=== PATIENT | male | born 1995 | race Caucasian/White ===

== ENCOUNTER 2018-08-29 21:07 | Emergency (ER) | payer MEDICAID, SELFPAY ==
[2018-08-29] VITALS (14 sets, daily range): BP systolic 140–164; BP diastolic 68–104; PULSE 78–86; RESP 23; TEMP 36.6; O2SAT 90–100
--- NOTE | 2018-08-29 21:02 | DI.CT_ITS ---
SYMPTOMS/DIAGNOSIS: ETOH, FALL, POSTERIOR HEADACHE, LLQ PAIN CT BRAIN: Noncontrast. No priors. There is a normal godoy/white matter differentiation. No intracranial hemorrhage, midline shift or mass effect is identified. The ventricles are intact. The basilar cisterns are patent. There is nondisplaced fracture involving the right frontal bone. It involves the anterior and posterior wall of the right frontal sinus and extends to involve the right orbital roof and the medial wall of the right orbit. Fluid levels are seen in the right frontal sinus and severe ethmoid air cells anteriorly. There is also small fluid level in the right maxillary sinus. There is a small amount of air seen superior to the right orbit. The orbits and retro-orbital soft tissues are otherwise unremarkable. The orbital floor appears intact. IMPRESSION: 1. Fracture involving the right frontal bone with extension into both the anterior and posterior oliver of the right frontal sinus and extension into the roof of the right orbit and medial wall of the right orbit. 2. Small fluid level seen in the right frontal and maxillary sinuses with opacification of a few right ethmoid air cells. 3. No intracranial hemorrhage or abnormality. CT SCAN OF THE CERVICAL SPINE: Multiple contiguous axial images of the cervical spine were obtained. Sagittal and coronal reformatted images were evaluated on the Siemens workstation. There is straightening of the normal cervical lordosis. This may be due to patient positioning or muscle spasm. No acute fractures or subluxations are seen. There are mild degenerative changes seen in the cervical spine. The soft tissues are unremarkable. IMPRESSION: No acute fracture or subluxation in the cervical spine. CT SCAN OF THE ABDOMEN AND PELVIS: The liver is normal in size. No hepatic mass or laceration is seen. The portal, superior mesenteric and splenic veins are patent. The gallbladder is negative. There is no biliary ductal dilatation. The pancreas, spleen and adrenal glands are unremarkable as are the kidneys, ureters and bladder. The reproductive organs are unremarkable. The bowel shows no evidence of obstruction or inflammation. There is a normal appendix present. The abdominal aorta is of normal caliber. No significant abdominal or pelvic adenopathy, ascites or pneumoperitoneum is present. No acute osseous abnormality is identified. IMPRESSION: Negative abdominal and pelvic CT. CT SCAN OF THE CHEST: The thoracic aorta is intact. No evidence of dissection or aneurysm. The heart size is within normal limits. No significant pericardial effusion is present. No evidence of thoracic adenopathy, pleural effusion or pneumothorax is identified. There is soft tissue haziness in the anterior mediastinum. This is nonspecific. This may represent residual thymic tissue. Mediastinal trauma can not be excluded. No displaced rib fractures are appreciated. The sternum is intact. The thoracic spine appears grossly unremarkable. IMPRESSION: Haziness in the anterior mediastinum. This may represent residual thymic tissue but trauma to the anterior mediastinum can not be excluded. Please correlate clinically.
--- NOTE | 2018-08-29 21:04 | W.ED.GENAD ---
Discharge Plan Disposition Patient Disposition: [facility] Condition: Stable Discharge Details Chief Complaint: HeadInjury Clinical Impression: Traumatic fracture of facial bones Primary Care Provider: Zackery Sargent ED Provider: Micheal Pantoja Home Meds and New Rx's Prescriptions: No Action No Known Home Meds RF: 0 Medical Decision Making 23-year-old male drinking well number of beers today, got an argument with his mother, and then does not remember but was witnessed to fall over and strike his head on concrete. Unclear sustained loss of consciousness. He then sat up, EMS was called, he was placed in cervical collar and brought to the ER. His vital signs are normal, he does have evidence of head trauma with a abrasion to the forehead, posterior cervical tenderness. Additionally he has some minimal left lower quadrant tenderness. Due to the alcohol he is not a reliable historian. IV access established, labs obtained, patient referred for imaging. CT of the head reveals a nondisplaced fracture of the right frontal lobe with extension through the posterior and anterior wall of the right frontal sinus and extension into the roof and medial wall of the right orbit. Fluid levels within the right frontal and maxillary sinuses. C-spine negative. Negative anterior mediastinal haziness but otherwise unremarkable CT of chest abdomen and pelvis. Case discussed with Dr. Kang of [facility]'s trauma service, he accepts in transfer given the significance of the injury and need for observation. Lab Data Lab results reviewed: Yes I reviewed the patient's lab results. Laboratory Results - last 24 hr 08/29/18 08/29/18 08/29/18 21:55 21:55 21:55 WBC 10.19 RBC 5.77 Hgb 16.9 Hct 48.0 MCV 83.2 MCH 29.3 MCHC 35.2 RDW 13.8 Plt Count 138 MPV 12.3 H Immature Gran % 0.3 Neutrophils % 73.0 Lymphocytes % 18.4 Monocytes % 7.3 Eosinophils % 0.7 Basophils % 0.3 Absolute Neutrophils 7.45 H Absolute Lymphocytes 1.87 Absolute Monocytes 0.74 H Absolute Eosinophils 0.07 Absolute Basophils 0.03 PT 9.7 INR 1.0 Sodium 138 Potassium 3.8 Chloride 101 Carbon Dioxide 25.5 Anion Gap 11.5 H BUN 18 Creatinine 1.29 Estimated GFR/1.73 m2 >= 60.00 Glucose 94 Calcium 9.1 Total Bilirubin 1.3 H AST 28 ALT 42 Alkaline Phosphatase 62 Total Protein 8.1 Albumin 4.5 Ethyl Alcohol 08/29/18 21:55 WBC RBC Hgb Hct MCV MCH MCHC RDW Plt Count MPV Immature Gran % Neutrophils % Lymphocytes % Monocytes % Eosinophils % Basophils % Absolute Neutrophils Absolute Lymphocytes Absolute Monocytes Absolute Eosinophils Absolute Basophils PT INR Sodium Potassium Chloride Carbon Dioxide Anion Gap BUN Creatinine Estimated GFR/1.73 m2 Glucose Calcium Total Bilirubin AST ALT Alkaline Phosphatase Total Protein Albumin Ethyl Alcohol 91.3 ECG Data Attestation: I personally reviewed and interpreted this ECG (s) as follows: Interpretation: Normal sinus rhythm with a rate of 89, QRS is narrow, J-point elevation is present but there is no significant or diagnostic ST segment elevation. HPI General Mode of arrival: EMS. Date/Time Provider Initiated Documentation: 08/29/18 21:32. Limitations to Documentation: no limitations. Information obtained by: patient, family and EMS. History of Present Illness 23 year old M presents to the emergency department with the chief complaint of Drinking alcohol today, fell, described as moderate, Quality is described as dull and constant, and is localized to the head. Patient neck. Patient started experiencing this minute(s) and it has been constant. No relieving factors improve symptom(s), No exacerbating factors reported . Patient notes other (Left lower quadrant pain). Patient did receive the following treatments prior to arrival, other (IV placed in ambulance) Related Data Home Medications Medication Instructions Recorded Confirmed Unknown [No Known Home Meds] 11/26/12 08/29/18 Allergies Allergy/AdvReac Type Severity Reaction Status Date / Time No Known Allergies Allergy Unverified 08/29/18 20:57 General Stated Complaint: HeadInjury MAURICE: 3 Review of Systems Review of Systems Was drinking and then argued with mother, fell over, struck head. Posterior headache. Left lower quadrant pain. 8 systems reviewed and otherwise - [facility], [facility] Social History Smoking/Tobacco Use Status: Former Tobacco Use Alcohol Intake: current Alcohol Intake frequency: 0-2 drinks per day Alcohol type: beer Drug use: Daily Substance use type: marijuana Do you feel safe at home: Yes Do you feel safe in your relationship?: Yes Exam Narrative Exam Narrative: GEN: awake, alert, oriented 3. Pleasant, well groomed, interactive. HEAD: Normocephalic, abrasion to forehead ENT: Mucous membranes moist, oropharynx unremarkable, External ear exam unremarkable EYES: PERRL, EOMI NECK: Cervical collar in place, minimal posterior midline tenderness without step-off 4-4, no SAHRA, no menigismus CHEST/RESP: Minimally tender without crepitus, clear to auscultation bilateral, no wheeze/rhonchi/rales CARDIOVASCULAR: RRR, no murmur, rub nora. 2+ Rad pulse bilateral ABDOMEN: Soft, left lower quadrant tender, no mass. +Bowel sounds EXT: Full ROM, no edema, no rash. Minimal abrasions bilateral upper extremity Neuro: Grossly normal neurologic exam, conversant, interactive. Psych: Speech fluent, thoughts congruent, affect normal Course Vital Signs Temperature 36.6 C 08/29/18 20:50 Pulse 86 08/29/18 20:50 Respiratory Rate 23 08/29/18 20:50 Blood Pressure 140/68 08/29/18 20:50 Temperature 36.6 C 08/29/18 20:50 Temperature Source Skin 08/29/18 20:50 Pulse 86 08/29/18 20:50 Respiratory Rate 23 08/29/18 20:50 Respiratory Effort Non-Labored 08/29/18 20:54 Blood Pressure 140/68 08/29/18 20:50 Blood Pressure Position Supine 08/29/18 20:50 Oxygen Delivery Method Room Air 08/29/18 20:50 Oxygen Flow Rate 0 08/29/18 20:50 Pain Level 8 08/29/18 20:50
--- NOTE | 2018-08-29 21:08 | ED.GENADUL_ITS ---
Discharge Plan Disposition Patient Disposition: [facility] Condition: Stable Discharge Details Chief Complaint: HeadInjury Clinical Impression: Traumatic fracture of facial bones Primary Care Provider: Zackery Sargent ED Provider: Micheal Pantoja Home Meds and New Rx's Prescriptions: No Action No Known Home Meds RF: 0 Medical Decision Making 23-year-old male drinking well number of beers today, got an argument with his mother, and then does not remember but was witnessed to fall over and strike his head on concrete. Unclear sustained loss of consciousness. He then sat up, EMS was called, he was placed in cervical collar and brought to the ER. His vital signs are normal, he does have evidence of head trauma with a abrasion to the forehead, posterior cervical tenderness. Additionally he has some minimal left lower quadrant tenderness. Due to the alcohol he is not a reliable historian. IV access established, labs obtained, patient referred for imaging. CT of the head reveals a nondisplaced fracture of the right frontal lobe with extension through the posterior and anterior wall of the right frontal sinus and extension into the roof and medial wall of the right orbit. Fluid levels within the right frontal and maxillary sinuses. C-spine negative. Negative anterior mediastinal haziness but otherwise unremarkable CT of chest abdomen and pelvis. Case discussed with Dr. Kang of [facility]'s trauma service, he accepts in transfer given the significance of the injury and need for observation. Lab Data Lab results reviewed: Yes I reviewed the patient's lab results. Laboratory Results - last 24 hr 08/29/18 08/29/18 08/29/18 21:55 21:55 21:55 WBC 10.19 RBC 5.77 Hgb 16.9 Hct 48.0 MCV 83.2 MCH 29.3 MCHC 35.2 RDW 13.8 Plt Count 138 MPV 12.3 H Immature Gran % 0.3 Neutrophils % 73.0 Lymphocytes % 18.4 Monocytes % 7.3 Eosinophils % 0.7 Basophils % 0.3 Absolute Neutrophils 7.45 H Absolute Lymphocytes 1.87 Absolute Monocytes 0.74 H Absolute Eosinophils 0.07 Absolute Basophils 0.03 PT 9.7 INR 1.0 Sodium 138 Potassium 3.8 Chloride 101 Carbon Dioxide 25.5 Anion Gap 11.5 H BUN 18 Creatinine 1.29 Estimated GFR/1.73 m2 >= 60.00 Glucose 94 Calcium 9.1 Total Bilirubin 1.3 H AST 28 ALT 42 Alkaline Phosphatase 62 Total Protein 8.1 Albumin 4.5 Ethyl Alcohol 08/29/18 21:55 WBC RBC Hgb Hct MCV MCH MCHC RDW Plt Count MPV Immature Gran % Neutrophils % Lymphocytes % Monocytes % Eosinophils % Basophils % Absolute Neutrophils Absolute Lymphocytes Absolute Monocytes Absolute Eosinophils Absolute Basophils PT INR Sodium Potassium Chloride Carbon Dioxide Anion Gap BUN Creatinine Estimated GFR/1.73 m2 Glucose Calcium Total Bilirubin AST ALT Alkaline Phosphatase Total Protein Albumin Ethyl Alcohol 91.3 ECG Data Attestation: I personally reviewed and interpreted this ECG (s) as follows: Interpretation: Normal sinus rhythm with a rate of 89, QRS is narrow, J-point elevation is present but there is no significant or diagnostic ST segment elevation. HPI General Mode of arrival: EMS . Date/Time Provider Initiated Documentation: 08/29/18 21:32 . Limitations to Documentation: no limitations . Information obtained by: patient, family and EMS . History of Present Illness 23 year old M presents to the emergency department with the chief complaint of Drinking alcohol today, fell, described as moderate, Quality is described as dull and constant, and is localized to the head. Patient neck. Patient started experiencing this minute(s) and it has been constant. No relieving factors improve symptom(s), No exacerbating factors reported . Patient notes other (Left lower quadrant pain). Patient did receive the following treatments prior to arrival, other (IV placed in ambulance) Related Data Home Medications Medication Instructions Recorded Confirmed Unknown [No Known Home Meds] 11/26/12 08/29/18 Allergies Allergy/AdvReac Type Severity Reaction Status Date / Time No Known Allergies Allergy Unverified 08/29/18 20:57 General Stated Complaint: HeadInjury MAURICE: 3 Review of Systems Review of Systems Was drinking and then argued with mother, fell over, struck head. Posterior headache. Left lower quadrant pain. 8 systems reviewed and otherwise - [facility] Social History Smoking/Tobacco Use Status: Former Tobacco Use Alcohol Intake: current Alcohol Intake frequency: 0-2 drinks per day Alcohol type: beer Drug use: Daily Substance use type: marijuana Do you feel safe at home: Yes Do you feel safe in your relationship?: Yes Exam Narrative Exam Narrative: GEN: awake, alert, oriented 3. Pleasant, well groomed, interactive. HEAD: Normocephalic, abrasion to forehead ENT: Mucous membranes moist, oropharynx unremarkable, External ear exam unremarkable EYES: PERRL, EOMI NECK: Cervical collar in place, minimal posterior midline tenderness without step-off 4-4, no SAHRA, no menigismus CHEST/RESP: Minimally tender without crepitus, clear to auscultation bilateral, no wheeze/rhonchi/rales CARDIOVASCULAR: RRR, no murmur, rub nora. 2+ Rad pulse bilateral ABDOMEN: Soft, left lower quadrant tender, no mass. +Bowel sounds EXT: Full ROM, no edema, no rash. Minimal abrasions bilateral upper extremity Neuro: Grossly normal neurologic exam, conversant, interactive. Psych: Speech fluent, thoughts congruent, affect normal Course Vital Signs Temperature 36.6 C 08/29/18 20:50 Pulse 86 08/29/18 20:50 Respiratory Rate 23 08/29/18 20:50 Blood Pressure 140/68 08/29/18 20:50 Temperature 36.6 C 08/29/18 20:50 Temperature Source Skin 08/29/18 20:50 Pulse 86 08/29/18 20:50 Respiratory Rate 23 08/29/18 20:50 Respiratory Effort Non-Labored 08/29/18 20:54 Blood Pressure 140/68 08/29/18 20:50 Blood Pressure Position Supine 08/29/18 20:50 Oxygen Delivery Method Room Air 08/29/18 20:50 Oxygen Flow Rate 0 08/29/18 20:50 Pain Level 8 08/29/18 20:50
[2018-08-29] MEDS: Omnipaque 350 MG/ML 100 ML BTL IJ (21:15)
[2018-08-29] MEDS: Ondansetron 4 MG/2 ML VIAL IVP (21:45)
[2018-08-29] MEDS: HYDROmorphone 2 MG/ML VIAL 0.5 MG IVP ×2 (21:56→22:33)
--- NOTE | 2018-08-29 21:59 | DI.VRAD_ITS ---
EXAM: CT Head Without Contrast EXAM DATE/TIME: 08/29/2018 9:04 PM CLINICAL HISTORY: 23 years old, male; Injury or trauma; Initial encounter; Blunt trauma (contusions or hematomas); Consciousness not specified; Injury details: Etoh/fall. Posterior ASHFORD TECHNIQUE: Imaging protocol: Axial computed tomography images of the head without contrast. Coronal and sagittal reformatted images were created and reviewed. Radiation optimization: All CT scans at this facility use at least one of these dose optimization techniques: automated exposure control; mA and/or kV adjustment per patient size (includes targeted exams where dose is matched to clinical indication); or iterative reconstruction. COMPARISON: No relevant prior studies available. FINDINGS: Brain: Unremarkable. No hemorrhage. No significant white matter disease. No edema. Ventricles: Unremarkable. No ventriculomegaly. Bones/joints: There is a nondisplaced fracture of the anterior aspect of the right frontal bone with extension through the posterior and anterior wall of the right frontal sinus and extension into the roof and medial wall of the right orbit. The right orbital floor is intact. Sinuses: There is a fluid level within the right frontal and right maxillary sinus. Mucosal thickening within bilateral ethmoid, and left sphenoid sinus. Mastoid air cells: Visualized mastoid air cells are well aerated. No mastoid effusion. Soft tissues: There is a tiny amount of air within the superior soft tissues of the right orbit. Both ocular globes and retro-orbital fat are unremarkable. IMPRESSION: 1. Nondisplaced fracture of the anterior aspect of the right frontal bone with extension through the posterior and anterior wall of the right frontal sinus and extension into the roof and medial wall of the right orbit. 2. Fluid levels within the right frontal and maxillary sinuses. 3. No intracranial abnormality. EXAM: CT Cervical Spine Without Contrast EXAM DATE/TIME: 08/29/2018 9:04 PM CLINICAL HISTORY: 23 years old, male; Injury or trauma; Initial encounter; Blunt trauma (contusions or hematomas); Consciousness not specified; Injury details: Etoh/fall. Posterior ASHFORD TECHNIQUE: Imaging protocol: Axial computed tomography images of the cervical spine without contrast. Coronal and sagittal reformatted images were created and reviewed. Radiation optimization: All CT scans at this facility use at least one of these dose optimization techniques: automated exposure control; mA and/or kV adjustment per patient size (includes targeted exams where dose is matched to clinical indication); or iterative reconstruction. COMPARISON: No relevant prior studies available. FINDINGS: Vertebrae: Straightening of the normal cervical lordosis, likely due to splinting and/or patient positioning. Minimal degenerative spondylosis within the upper and mid cervical spine. No fracture or subluxation. Discs/Spinal canal/Neural foramina: No bony spinal stenosis. Soft tissues: Unremarkable. Lungs: Lung apices are clear. IMPRESSION: No fracture. Dictated and Authenticated by: Adam Carrasquillo MD. Ordering:SAMANTHA Burton MD
--- NOTE | 2018-08-29 22:03 | DI.VRAD_ITS ---
Addendum created by Prakash Ybarra MD on 08/29/2018 10:06:27 PM EDT STAT TRAUMA PROTOCOL CALL: THIS REPORT CONTAINS FINDINGS THAT MAY BE CRITICAL TO PATIENT CARE. The findings were verbally communicated via telephone conference with SACHI PADRON at 10:06 PM EDT on 08/29/2018. The findings were acknowledged and understood. Initial report created on 08/29/2018 10:03:16 PM EDT EXAM: CT Chest With Contrast EXAM DATE/TIME: 08/29/2018 9:04 PM CLINICAL HISTORY: 23 years old, male; Injury or trauma; Initial encounter; Blunt trauma (contusions or hematomas); Injury details: Etoh/fall. Posterior ASHFORD. Llq pain TECHNIQUE: Imaging protocol: Axial computed tomography images of the chest with intravenous contrast. Coronal and sagittal reformatted images were created and reviewed. Radiation optimization: All CT scans at this facility use at least one of these dose optimization techniques: automated exposure control; mA and/or kV adjustment per patient size (includes targeted exams where dose is matched to clinical indication); or iterative reconstruction. Contrast material: OMNI 350; Contrast volume: 100 ml; Contrast route: IV; COMPARISON: No relevant prior studies available. FINDINGS: Lungs: Linear fibrosis/atelectasis at the lung base bilaterally. Pleural space: Normal. No pneumothorax. No pleural effusion. Heart: Normal. No cardiomegaly. No pericardial effusion. Mediastinum: There is haziness of the fat in the anterior mediastinum. Aorta: Normal. No aortic aneurysm. Lymph nodes: Unremarkable. No enlarged lymph nodes. Bones/joints: Unremarkable. No acute fracture. Soft tissues: Unremarkable. IMPRESSION: There is mild haziness of the fat in the anterior mediastinum unclear if this is secondary to recent trauma. Otherwise unremarkable CT of the chest. EXAM: CT Abdomen and Pelvis With Contrast EXAM DATE/TIME: 08/29/2018 9:04 PM CLINICAL HISTORY: 23 years old, male; Injury or trauma; Initial encounter; Blunt trauma (contusions or hematomas); Injury details: Etoh/fall. Posterior ASHFORD. Llq pain TECHNIQUE: Imaging protocol: Axial computed tomography images of the abdomen and pelvis with intravenous contrast. Coronal and sagittal reformatted images were created and reviewed. Radiation optimization: All CT scans at this facility use at least one of these dose optimization techniques: automated exposure control; mA and/or kV adjustment per patient size (includes targeted exams where dose is matched to clinical indication); or iterative reconstruction. Contrast material: OMNI 350; Contrast volume: 125 ml; Contrast route: IV; COMPARISON: No relevant prior studies available. FINDINGS: ABDOMEN: Liver: Normal. No mass. Gallbladder and bile ducts: Normal. No calcified stones. No ductal dilation. Pancreas: Normal. No ductal dilation. Spleen: Normal. No splenomegaly. Adrenals: Normal. No mass. Kidneys and ureters: Normal. No hydronephrosis. Stomach and bowel: Normal. No obstruction. No mucosal thickening. Appendix: No evidence of appendicitis. PELVIS: Bladder: Unremarkable as visualized. Reproductive: Unremarkable as visualized. ABDOMEN and PELVIS: Intraperitoneal space: Normal. No free air. No significant fluid collection. Bones/joints: No acute fracture. No dislocation. Soft tissues: Unremarkable. Vasculature: Normal. No abdominal aortic aneurysm. Lymph nodes: Normal. No enlarged lymph nodes. IMPRESSION: No current CT evidence of intra-abdominal trauma. Dictated and Authenticated by: Prakash Ybarra MD. Ordering:SAMANTHA Burton MD
[2018-08-29 22:11] LABS: Abs Immature Grans 0.03 k/cumm (0.0-0.09); Absolute Basophil Count 0.03 k/cumm (0.0-0.2); Absolute Eosinophil Count 0.07 k/cumm (0.0-0.7); Absolute Lymphocyte Count 1.87 k/cumm (1.2-3.4); Absolute Monocyte Count 0.74 k/cumm (0.11-0.7); Absolute Neutrophil Count 7.45 k/cumm (1.2-6.7); Basophils % 0.3; Eosinophils % 0.7; HGB 16.9 g/dL (13.5-17.5); Immature Grans % 0.3; Lymphocytes % 18.4; Mean Corp. HGB Concentration 35.2 g/dL (32.0-36.0); Mean Corpuscular Hemoglobin 29.3 pg (27.0-33.0); Mean Corpuscular Volume 83.2 fL (80-95); Mean Platelet Volume 12.3 fL (8.0-11.0); Monocytes % 7.3; Platelet Count 138 x1000/uL (130-400); RBC 5.77 m/cumm (4.50-6.00); RBC Distribution Width 13.8 % (11.8-14.1); White Blood Cell Count 10.19 k/cumm (4.4-10.8)
[2018-08-29 22:19] LABS: ETHANOL BLOOD 91.3 mg/dL (<3)
[2018-08-29 22:27] LABS: ALT 42 U/L (12-78); AST 28 U/L (15-37); Albumin 4.5 g/dL (3.4-5.0); Alkaline Phosphatase 62 U/L (46-116); Anion Gap 11.5 mmol/L (3-11); BUN 18 mg/dL (7-18); Bilirubin, Total 1.3 mg/dL (0.2-1.0); CO2 25.5 mmol/L (21.0-32.0); CREATININE 1.29 mg/dL (0.70-1.30); Calcium 9.1 mg/dL (8.5-10.1); Chloride 101 mmol/L (98-107); Glucose 94 mg/dL (70-100); Potassium 3.8 mmol/L (3.5-5.1); Sodium 138 mmol/L (136-145); Total Protein 8.1 g/dL (6.4-8.2)
[2018-08-29] MEDS: Normal Saline 1,000 ML 1000 ML IV (22:33)
[2018-08-29 22:39] LABS: Prothrombin Time 9.7 sec (9.3-11.0)
[2018-08-30 00:01] VITALS: BP 153/69; PULSE 78; O2SAT 93
[2018-08-30 00:02] VITALS: O2SAT 93
[2018-08-30 00:27] VITALS: BP 153/69; PULSE 78; RESP 23; O2SAT 93
== END 2018-08-30 00:29 | disposition short-term general hospital (02) ==
PROVIDERS: Emergency Provider Emergency Medicine; PCP Pediatrics
DX: S02.101A Fracture of base of skull, right side, initial encounter for closed fracture (principal); S00.81XA Abrasion of other part of head, initial encounter; M54.2 Cervicalgia; W18.30XA Fall on same level, unspecified, initial encounter; F10.120 Alcohol abuse with intoxication, uncomplicated; Y90.4 Blood alcohol level of 80-99 mg/100 ml; R10.32 Left lower quadrant pain; R51 Headache
CPT/HCPCS: 36415; 74177; 80053; 93005; 96361; 96374; 96375; 96376; 99285; 70450; 71260; 72125; 80320; 85025; 85610; 93010; J2405; J3490

== ENCOUNTER 2018-09-02 11:44 | Emergency (ER) | payer MEDICAID, SELFPAY ==
[2018-09-02 11:55] VITALS: BP 140/76; PULSE 86; RESP 17; TEMP 37; O2SAT 98
--- NOTE | 2018-09-02 12:09 | W.ED.GENAD ---
Discharge Plan Disposition Patient Disposition: HOME Condition: Improving Discharge Details Chief Complaint: Recheck Clinical Impression: Head injury Primary Care Provider: Ana Paula,Local ED Provider: Micheal Pantoja Home Meds and New Rx's Prescriptions: No Action No Known Home Meds RF: 0 Discharge Instructions Instructions: Head Injury (ED) Additional Instructions: Light duty with both exercise and general activity over the next 7 to 10 days time, then may slowly advance activity as tolerated. May continue Tylenol as needed for headache, consider beginning to wean off of the ibuprofen. Return if you develop a fever, vomiting, persistent headache or any other concerns. You may wish to avoid prolonged use of screen time, or activity such as bookkeeping for the next 7 to 10 days time Medical Decision Making 23-year-old male known to me from a visit to the ER at this August 29 when he had fallen with frontal trauma and resultant frontal bone and orbital fracture. He was evaluated by the [facility] trauma service, had a follow-up with ophthalmology, now presents for recheck. He states he does not feel he had adequate discharge instructions and does not know limits of activity. He states he has been weaning from oral analgesics and has not had any's persistent or lasting headaches. No visual complaints. Patient's exam is reassuring and without significant finding. Discussed with him anticipated course of resolution of both concussive head injury as well as nondisplaced frontal bone fracture. He is stable for discharge to home. He understands return precautions HPI General Mode of arrival: ambulatory. Date/Time Provider Initiated Documentation: 09/02/18 11:47. Limitations to Documentation: no limitations. Information obtained by: patient. History of Present Illness 23 year old M presents to the emergency department with the chief complaint of Recheck after head injury, described as mild, Quality is described as dull and constant, and is localized to the head. Patient reports no radiation. Patient started experiencing this day(s) and it has been intermittent. No relieving factors improve symptom(s), No exacerbating factors reported . Patient notes no other symptoms.. Patient did receive the following treatments prior to arrival, none Related Data Home Medications Medication Instructions Recorded Confirmed Unknown [No Known Home Meds] 11/26/12 09/02/18 Allergies Allergy/AdvReac Type Severity Reaction Status Date / Time No Known Allergies Allergy Unverified 09/02/18 12:04 General Stated Complaint: Recheck MAURICE: 3 Review of Systems Review of Systems No fever or chills, no change to vision. Saw ophthalmology and had unremarkable eye exam. 8 systems reviewed and otherwise neg [facility] Social History Smoking/Tobacco Use Status: Former Tobacco Use Alcohol Intake: current Alcohol Intake frequency: 0-2 drinks per day Alcohol type: beer Drug use: Daily Substance use type: marijuana Do you feel safe at home: Yes Do you feel safe in your relationship?: Yes Exam Narrative Exam Narrative: GEN: awake, alert, oriented 3. Pleasant, well groomed, interactive. HEAD: Normocephalic, healing abrasion at the superior portion of forehead. ENT: Mucous membranes moist, oropharynx unremarkable, External ear exam unremarkable. Tympanic membranes clear bilaterally. No midface instability or anesthesia EYES: PERRL, EOMI NECK: Full ROM, no SAHRA, no menigismus CHEST/RESP: Nontender, no respiratory distress EXT: Full ROM, no edema, no rash Neuro: Grossly normal neurologic exam, conversant, interactive. Cranial nerves II through XII intact. Psych: Speech fluent, thoughts congruent, affect normal Course Vital Signs Temperature 37.0 C 09/02/18 11:55 Pulse 86 09/02/18 11:55 Respiratory Rate 17 09/02/18 11:55 Blood Pressure 140/76 09/02/18 11:55 Pulse Oximetry 98 09/02/18 11:55 Temperature 37.0 C 09/02/18 11:55 Pulse 86 09/02/18 11:55 Respiratory Rate 17 09/02/18 11:55 Respiratory Effort Non-Labored 09/02/18 12:02 Blood Pressure 140/76 09/02/18 11:55 Blood Pressure Position Sitting 09/02/18 11:55 Pulse Oximetry 98 09/02/18 11:55 Oxygen Delivery Method Room Air 09/02/18 11:55 Oxygen Flow Rate 0 09/02/18 11:55 Pain Level 0 09/02/18 11:55
--- NOTE | 2018-09-02 12:13 | ED.GENADUL_ITS ---
Discharge Plan Disposition Patient Disposition: HOME Condition: Improving Discharge Details Chief Complaint: Recheck Clinical Impression: Head injury Primary Care Provider: Ana Paula,Local ED Provider: Micheal Pantoja Home Meds and New Rx's Prescriptions: No Action No Known Home Meds RF: 0 Discharge Instructions Instructions: Head Injury (ED) Additional Instructions: Light duty with both exercise and general activity over the next 7 to 10 days time, then may slowly advance activity as tolerated. May continue Tylenol as needed for headache, consider beginning to wean off of the ibuprofen. Return if you develop a fever, vomiting, persistent headache or any other concerns. You may wish to avoid prolonged use of screen time, or activity such as bookkeeping for the next 7 to 10 days time Medical Decision Making 23-year-old male known to me from a visit to the ER at this August 29 when he had fallen with frontal trauma and resultant frontal bone and orbital fracture. He was evaluated by the [facility] trauma service, had a follow-up with ophthalmology, now presents for recheck. He states he does not feel he had adequate discharge instructions and does not know limits of activity. He states he has been weaning from oral analgesics and has not had any's persistent or lasting headaches. No visual complaints. Patient's exam is reassuring and without significant finding. Discussed with him anticipated course of resolution of both concussive head injury as well as nondisplaced frontal bone fracture. He is stable for discharge to home. He understands return precautions HPI General Mode of arrival: ambulatory . Date/Time Provider Initiated Documentation: 09/02/18 11:47 . Limitations to Documentation: no limitations . Information obtained by: patient . History of Present Illness 23 year old M presents to the emergency department with the chief complaint of Recheck after head injury, described as mild, Quality is described as dull and constant, and is localized to the head. Patient reports no radiation. Patient started experiencing this day(s) and it has been intermittent. No relieving factors improve symptom(s), No exacerbating factors reported . Patient notes no other symptoms.. Patient did receive the following treatments prior to arrival, none Related Data Home Medications Medication Instructions Recorded Confirmed Unknown [No Known Home Meds] 11/26/12 09/02/18 Allergies Allergy/AdvReac Type Severity Reaction Status Date / Time No Known Allergies Allergy Unverified 09/02/18 12:04 General Stated Complaint: Recheck MAURICE: 3 Review of Systems Review of Systems No fever or chills, no change to vision. Saw ophthalmology and had unremarkable eye exam. 8 systems reviewed and otherwise neg [facility] Social History Smoking/Tobacco Use Status: Former Tobacco Use Alcohol Intake: current Alcohol Intake frequency: 0-2 drinks per day Alcohol type: beer Drug use: Daily Substance use type: marijuana Do you feel safe at home: Yes Do you feel safe in your relationship?: Yes Exam Narrative Exam Narrative: GEN: awake, alert, oriented 3. Pleasant, well groomed, interactive. HEAD: Normocephalic, healing abrasion at the superior portion of forehead. ENT: Mucous membranes moist, oropharynx unremarkable, External ear exam unremarkable. Tympanic membranes clear bilaterally. No midface instability or anesthesia EYES: PERRL, EOMI NECK: Full ROM, no SAHRA, no menigismus CHEST/RESP: Nontender, no respiratory distress EXT: Full ROM, no edema, no rash Neuro: Grossly normal neurologic exam, conversant, interactive. Cranial nerves II through XII intact. Psych: Speech fluent, thoughts congruent, affect normal Course Vital Signs Temperature 37.0 C 09/02/18 11:55 Pulse 86 09/02/18 11:55 Respiratory Rate 17 09/02/18 11:55 Blood Pressure 140/76 09/02/18 11:55 Pulse Oximetry 98 09/02/18 11:55 Temperature 37.0 C 09/02/18 11:55 Pulse 86 09/02/18 11:55 Respiratory Rate 17 09/02/18 11:55 Respiratory Effort Non-Labored 09/02/18 12:02 Blood Pressure 140/76 09/02/18 11:55 Blood Pressure Position Sitting 09/02/18 11:55 Pulse Oximetry 98 09/02/18 11:55 Oxygen Delivery Method Room Air 09/02/18 11:55 Oxygen Flow Rate 0 09/02/18 11:55 Pain Level 0 09/02/18 11:55
[2018-09-02 12:54] VITALS: BP 140/76; PULSE 86; RESP 17; TEMP 37; O2SAT 98
--- NOTE | 2018-09-02 13:40 | PDOC.ERCMPRO ---
Care Management Progress Note 09/02-Dr. Pantoja requested assistance with a PCP (patient does not have one, [employer] environmental) f/u within a week for fall w/frontal trauma on 08/29. Patient had f/u at [facility] and presented to the ED today for recheck. Referral faxed to [facility] today.
--- NOTE | 2018-09-02 13:41 | CMPROGNOTE_ITS ---
Care Management Progress Note 09/02-Dr. 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 [place] [facility] [place] presented to the ED today for recheck. Referral faxed to [facility] today.
== END 2018-09-02 12:54 | disposition home or self-care (01) ==
PROVIDERS: Emergency Provider Emergency Medicine
DX: S02.10 Unspecified fracture of base of skull (principal); S00.81XD Abrasion of other part of head, subsequent encounter; W18.30XD Fall on same level, unspecified, subsequent encounter
CPT/HCPCS: 99281

== ENCOUNTER 2019-06-06 20:43 | Emergency (ER) | payer OTHER, SELFPAY ==
[2019-06-06 20:48] VITALS: BP 140/60; PULSE 45; RESP 16; TEMP 36.6; O2SAT 97
--- NOTE | 2019-06-06 21:13 | W.ED.GENAD ---
Discharge Plan Disposition Patient Disposition: HOME Condition: Stable Discharge Details Chief Complaint: Urinary Clinical Impression: Folliculitis, Urinary urgency Primary Care Provider: Jess Alonzo ED Provider: Eusebio Mandujano Home Meds and New Rx's Prescriptions: New bacitracin zinc 500 unit/gram ointment 1 applic TP Q8H 7 Days Qty: 15 RF: 0 Discharge Instructions Instructions: Sexually Transmitted Diseases (ED), Folliculitis (ED) Additional Instructions: Today you received prophylactic treatment for gonorrhea and chlamydia. You were given ceftriaxone 250 mg and azithromycin 2 g. Testing for gonorrhea, chlamydia, and syphilis pending at time of discharge. Please avoid sexual activity until you and any partner is tested and confirmed negative or fully treated. Please follow-up with your primary care physician. Return to the ER for any worsening or new concerning symptoms. Referrals: Jess Alonzo, [employer] [Primary Care Provider] - Medical Decision Making 23-year-old male here with increasing urinary frequency and urgency over the past 2 months. No dysuria or penile discharge. No testicular or epididymal tenderness. Patient also with group of small pustules at hair follicles left groin. Suspect mild folliculitis. No significant vesicle or ulcer amenable to herpes testing. Urinalysis was reviewed: Nondiagnostic. Plan to send gonorrhea and chlamydia and RPR. I had a conversation with the patient about options including initiating antibiotics prophylactically today or holding off and waiting for lab results. Patient would prefer for antibiotic treatment at this time - will treat with ceftriaxone 250mg IM and azithromycin 2g PO. Plan will be for outpatient follow-up with PCP. He is scheduled for appointment later this month which I encouraged him to keep. HPI General Mode of arrival: ambulatory. Date/Time Provider Initiated Documentation: 06/06/19 20:52. Limitations to Documentation: no limitations. Information obtained by: patient. HPI Narrative: 23-year-old male presents with chief complaint of increased urinary frequency and urgency over the past ~2 months. Symptoms worse recently. Denies associated dysuria. He has had some mild lower midline abdominal discomfort. He also notes new rash noted left groin earlier today. He has no prior history of STDs. Patient does note unprotected sexual activity with multiple partners over the past 6 months. He is currently monogamous relationship over the past 1 month. His partner is complaining of some urinary symptoms recently. Related Data Home Medications Medication Instructions Recorded Confirmed bacitracin zinc 1 applic TP Q8H 7 Days #15 gm 06/06/19 Previous Rx's Medication Instructions Recorded bacitracin zinc 1 applic TP Q8H 7 Days #15 gm 06/06/19 Allergies Allergy/AdvReac Type Severity Reaction Status Date / Time No Known Allergies Allergy Unverified 06/06/19 20:51 General Stated Complaint: Urinary MAURICE: 4 Review of Systems Constitutional Constitutional: Denies fever(s) ENT Ears, Nose, Mouth, and Throat: Denies sore throat Respiratory Respiratory: Denies cough Gastrointestinal Gastrointestinal: Reports as per HPI and Denies vomiting Genitourinary Genitourinary: Reports as per HPI, Denies genital pain, Denies dysuria, Denies flank pain, Denies penile discharge, Denies scrotal swelling, Denies testicular mass, Denies testicular pain, Reports urinary frequency and Reports urinary urgency Integumentary/Breasts Skin/Breast: Reports as per HPI [facility] Social History Smoking/Tobacco Use Status: Former Tobacco Use Alcohol Intake: current Alcohol Intake frequency: 0-2 drinks per day Alcohol type: beer Drug use: Daily Substance use type: marijuana Do you feel safe at home: Yes Do you feel safe in your relationship?: Yes Exam Const General: cooperative and no acute distress HENMT Mouth: moist mucous membranes Eyes Conjunctivae: normal conjunctivae Resp Auscultation: clear to auscultation bilaterally, no rales, no rhonchi and no wheezes Cardio Jugular venous pressure: no JVD Rate: regular rate and not tachycardic Rhythm: regular rhythm GI Palpation: soft, not firm, no guarding, no masses, not rigid and tender suprapubicly (Mild); with no rebound tenderness Male General Exam: No inguinal lymphadenopathy Penis: normal penis, not erythematous, no ulcerations and no vesicles Meatus: meatus normal Scrotum: scrotum normal Testes: normal, no epidiymal tenderness and no testicular tenderness Skin Rashes: rashes noted (Small group of pustules at hair follicle left groin, no ulceration) Neuro General: alert and awake Psych Mental Status: mental status grossly normal Course Vital Signs Vital signs: Vital Signs Temperature 36.6 C 06/06/19 20:48 Pulse 45 L 06/06/19 20:48 Respiratory Rate 16 03/02/20 20:48 Blood Pressure 140/60 06/06/19 20:48 Pulse Oximetry 97 06/06/19 20:48 Temperature 36.6 C 06/06/19 20:48 Temperature Source Tympanic 06/06/19 20:48 Pulse 45 L 06/06/19 20:48 Respiratory Rate 16 06/06/19 20:48 Respiratory Effort 06/06/19 20:52 Blood Pressure 140/60 06/06/19 20:48 Blood Pressure Position Sitting 06/06/19 20:48 Pulse Oximetry 97 06/06/19 20:48 Oxygen Delivery Method Room Air 06/06/19 20:48 Oxygen Flow Rate 0 06/06/19 20:48 Comment 06/06/19 20:48
[2019-06-06 21:33] LABS: Bilirubin Negative (Negative); Blood Negative (Negative); Clarity Clear (Clear); Glucose Negative (Negative); Ketones Negative (Negative); Leukocyte Esterase Negative (Negative); Nitrite Negative (Negative); Specific Gravity >= 1.030 (1.005-1.025); Urobilinogen 0.2 EU/dL (Up TO 0.2)
[2019-06-06] MEDS: cefTRIAXone 250 MG VIAL IM (21:50)
[2019-06-06] MEDS: Bacitracin 1 PACKET TP (22:04)
[2019-06-06] MEDS: Azithromycin 250 MG TAB 1000 MG PO (22:04)
[2019-06-08 12:36] LABS: Syphilis Serology (RPR) Negative (Negative)
[2019-06-08 13:07] LABS: Chlamydia Result Negative (Negative); GC Result Negative (Negative)
--- NOTE | 2019-06-10 11:36 | NUR.NOTE ---
Nursing Note: Patient called asking for results of tests. They were reviewed by Dr. Bruno. Patient was given the results and had questions that Dr. Bruno did answer for him. Manuela Morales.
== END 2019-06-06 22:05 | disposition home or self-care (01) ==
PROVIDERS: Emergency Provider Student in an Organized Health Care Education/Training Program; PCP Nurse Practitioner
DX: R35.0 Frequency of micturition (principal); R39.15 Urgency of urination; L73.8 Other specified follicular disorders
CPT/HCPCS: 36416; 82962; 87491; 87591; 96372; 99284; 81003; 86592; 99283; J0696

== ENCOUNTER 2020-01-06 13:42 | Outpatient (REF) | payer OTHER, SELFPAY | END 2020-01-06 14:02 | LOC: LBN 13:42 | PROVIDERS: PCP Nurse Practitioner; Visit Provider Physician Assistant | DX: J02.9 Acute pharyngitis, unspecified (principal) | CPT/HCPCS: 87070 ==

== ENCOUNTER 2020-05-03 17:45 | Emergency (ER) | payer OTHER, SELFPAY ==
[2020-05-03 18:09] VITALS: BP 134/69; PULSE 52; RESP 18; TEMP 36.4; O2SAT 97
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
--- NOTE | 2020-05-03 19:30 | DI.RAD_ITS ---
EXAM: XR LUMBAR SPINE AP, LAT CLINICAL HISTORY: trauma, fell on driveway. TECHNIQUE: 2D digital imaging was performed. COMPARISON: No exams were available for comparison FINDINGS: There is no evidence of fracture, listhesis, or pars interarticularis defects. There is moderate dis c space narrowing at L2-3, and L3-4 and L4-5 levels. Anterior osseous lipping noted. Bone density n ormal. No osseous lesions SI joints unremarkable. IMPRESSION: Degenerative disc disease. No fractures. No listhesis. DATA REPOSITORY: RADIATION DOSE DELIVERED:
[2020-05-03 19:39] LABS: Bilirubin Negative (Negative); Blood Small (Negative); Clarity Clear (Clear); Glucose Negative (Negative); Ketones Negative (Negative); Leukocyte Esterase Negative (Negative); Nitrite Negative (Negative); Specific Gravity >= 1.030 (1.005-1.025); Urobilinogen 0.2 EU/dL (Up TO 0.2)
[2020-05-03 19:47] LABS: Bacteria Negative HPF (Negative); C & S Indicated? No; Casts Negative LPF (Negative); Crystals Negative HPF (Negative); Epithelial Cells Rare HPF (Negative); Mucus Negative (Negative); WBC 0-2 HPF (0-5)
--- NOTE | 2020-05-03 19:49 | DI.VRAD_ITS ---
PROCEDURE INFORMATION: Exam: XR Lumbosacral Spine, 2 or 3 Views Exam date and time: 05/03/2020 6:15 PM Age: 24 years old Clinical indication: Patient HX: Patient fell on ice, both feet went under him, patient fell on buttocks, increasing low back pain post fall. TECHNIQUE: Imaging protocol: XR of the lumbosacral spine, 2 or 3 views. COMPARISON: CT abdomen pelvis dated 08/29/2018. FINDINGS: Bones/joints: There is mild decreased height of the anterior aspect of the L1 vertebral body, however appears similar on prior CT examination. No displaced fracture. Normal alignment. Soft tissues: Unremarkable. IMPRESSION: No evidence of acute abnormality. Dictated and Authenticated by: Raine Albright MD. Ordering:JANE Martinez MD
--- NOTE | 2020-05-03 20:31 | DI.CT_ITS ---
EXAM: CT LUMBAR SPINE RECONS CLINICAL HISTORY: trauma. TECHNIQUE: Imaging Protocol: Axial computed tomography images with coronal and sagittal reformatted images were created and reviewed COMPARISON: CT CT CHEST/ABD/PEL W from 08/29/2018 FINDINGS: Bones: There are no acute fractures, listhesis, nor pars defects. No sacral fracture. There is a be nign-appearing lucent peripherally sclerotic small bone lesion in the right side of the iliac bone lo cated just lateral to the right SI joint, this measuring 6 x 6 millimeters. slight minimal wedging of L1 is unchanged from August 2018. INDIVIDUAL LEVELS: T12-L1:No disc herniation nor canal stenosis. Facet joints unremarkable. No foraminal stenosis. L1-2: No disc herniation nor canal stenosis. Facet joints unremarkable. No foraminal stenosis. L2-3: Mild disc space narrowing. Anterior osseous lipping. No disc herniation. No central or fora cathie stenosis. No significant facet arthropathy. L3-4: Mild disc space narrowing and anterior osseous lipping. No disc herniation. Central canal di mensions lower normal. No significant foraminal stenosis. No facet arthropathy. L4-5: Mild disc space narrowing. No disc herniation. Central canal dimensions lower normal. No si gnificant facet arthropathy. No significant foraminal stenosis. L5-S1: No disc herniation or canal stenosis. No foraminal stenosis. No significant facet arthropat hy. The visualized sacroiliac joints and sacrum appear unremarkable. PARASPINAL SOFT TISSUES: Visualized paraspinal tissues appear unremarkable. IMPRESSION: 1. No significant acute findings. 2. No significant disc herniations nor canal stenosis nor significant foraminal stenosis. 3. Benign-appearing 6 x 6 millimeter lucent bone lesion in the right iliac bone just lateral to the r ight SI joint RADIATION DOSE DELIVERED: Total DLP DATA REPOSITORY: All CT scans at this facility are submitted to the National Radiology Data Registry (NRDR) Dose Index Registry (DIR) with the [employer] (ACR). RADIATION OPTIMIZATION: All CT scans at this facility use at least one of these dose optimization te chniques: automated exposure control; mA and/or kV adjustment per patient size (includes targeted exa ms where dose is matched to clinical indication); or iterative reconstruction.
[2020-05-03] MEDS: Normal Saline Flush 10 ML SYR IVP (20:35)
[2020-05-03] MEDS: Omnipaque 350 MG/ML 100 ML BTL IJ (20:40)
[2020-05-03] MEDS: Normal Saline - Diluent 50 ML VIAL IV (20:40)
--- NOTE | 2020-05-03 20:43 | DI.CT_ITS ---
EXAM: CT ABDOMEN PELVIS W CLINICAL HISTORY: trauma, hematuria. TECHNIQUE: Imaging Protocol: Axial computed tomography images with coronal and sagittal reformatted images were created and reviewed CONTRAST MATERIAL: Intravenous: Omnipaque 100cc Oral: None COMPARISON: CT CT CHEST/ABD/PEL W from 08/29/2018 FINDINGS: VISUALIZED LUNG BASES: No nodules nor pleural effusions evident. ABDOMEN: There is no ascites. LIVER: There are no obvious focal hepatic lesions evident. No hepatic laceration evident GALLBLADDER/BILIARY: No obvious gallbladder pathology. CBD is not dilated. PANCREAS: No evidence of pancreatic mass nor dilatation of the pancreatic duct. SPLEEN: Spleen is not enlarged. No obvious intrasplenic lesions. No splenic laceration evident. Sp lenic and portal veins are patent. ADRENALS: There are no significant adrenal masses. KIDNEYS:No evidence of significant renal trauma. No solid renal masses. No calculi nor hydronephros is.. ABDOMINAL AORTA: Abdominal aorta is not enlarged and there is no [id number] adenopat hy. ABDOMINAL WALL/GI: No evidence of significant anterior abdominal wall hernia. No evidence of bowel w all nor mesenteric hematoma. PELVIS: GI: No evidence of appendicitis.No evidence of sigmoid diverticulitis. LYMPH NODES: There is no intrapelvic nor inguinal adenopathy. REPRODUCTIVE: URINARY BLADDER: No calculi nor obvious masses evident OSSEOUS: No fractures evident. There is a 6 millimeter x 6 millimeter round benign-appearing bone le teresa in the right iliac bone just lateral to the right SI joint. IMPRESSION: 1. No evidence of significant acute findings in the abdomen and pelvis. 2. Incidentally noted is a small 6 x 6 millimeter round benign-appearing bone lesion in the right junito ac bone just lateral to the right SI joint. 3. There is no ascites and no evidence of mesenteric nor bowel wall hematoma, given the trauma histor y here. RADIATION DOSE DELIVERED: 1,023.97mGy.cm Total DLP DATA REPOSITORY: All CT scans at this facility are submitted to the National Radiology Data Registry (NRDR) Dose Index Registry (DIR) with the [employer] (ACR). RADIATION OPTIMIZATION: All CT scans at this facility use at least one of these dose optimization te chniques: automated exposure control; mA and/or kV adjustment per patient size (includes targeted exa ms where dose is matched to clinical indication); or iterative reconstruction.
[2020-05-03] MEDS: Acetaminophen 500 MG TAB 1000 MG PO (21:11)
[2020-05-03] MEDS: Ketorolac 30 MG/ML VIAL IVP (21:11)
[2020-05-03] MEDS: Normal Saline 500 ML 999 ML IV (21:16)
--- NOTE | 2020-05-03 21:17 | DI.VRAD_ITS ---
PROCEDURE INFORMATION: Exam: CT Abdomen And Pelvis With Contrast Exam date and time: 05/03/2020 8:20 PM Age: 24 years old Clinical indication: Injury or trauma; Fall; Blunt; Generalized; Injury date: 05/03/20; Injury details: Fell in driveway, landed on back TECHNIQUE: Imaging protocol: Computed tomography of the abdomen and pelvis with intravenous contrast. Radiation optimization: All CT scans at this facility use at least one of these dose optimization techniques: automated exposure control; mA and/or kV adjustment per patient size (includes targeted exams where dose is matched to clinical indication); or iterative reconstruction. Contrast material: [id number]; Contrast volume: 100 ml; Contrast route: INTRAVENOUS (IV); COMPARISON: CT CHEST/ABD/PEL W 08/29/2018 9:33 PM FINDINGS: Liver: A focus of fat deposition is seen in the left hepatic lobe adjacent to the falciform ligament. Gallbladder and bile ducts: Normal. No calcified stones. No ductal dilation. Pancreas: Normal. No ductal dilation. Spleen: There is slight enlargement of the spleen measuring up to 15 cm in AP dimension, similar to prior examination. Adrenal glands: Normal. No mass. Kidneys and ureters: No hydronephrosis. There is a small left renal hypodensity which is too small to characterize but could represent a cyst. Stomach and bowel: No obstruction. No mucosal thickening. Appendix: No evidence of appendicitis. Intraperitoneal space: No free air. No significant fluid collection. Vasculature: Unremarkable. No abdominal aortic aneurysm. Lymph nodes: Unremarkable. No enlarged lymph nodes. Urinary bladder: Unremarkable as visualized. Reproductive: Unremarkable as visualized. Bones/joints: No acute fracture. A small stable focus of lucency noted in the right iliac wing. Soft tissues: Unremarkable. IMPRESSION: 1. No evidence of acute injury in the abdomen and pelvis. 2. Stable mild enlargement of the spleen. Dictated and Authenticated by: Raine Albright MD. Ordering:JANE Martinez MD
--- NOTE | 2020-05-03 21:22 | DI.VRAD_ITS ---
PROCEDURE INFORMATION: Exam: CT Lumbar Spine Without Contrast Exam date and time: 05/03/2020 8:32 PM Age: 24 years old Clinical indication: Injury or trauma; Fall; Blunt trauma (contusions or hematomas); Injury date: 05/03/20; Injury details: Fell in driveway, back pain; Additional info: Recons from ab/pel study done same day TECHNIQUE: Imaging protocol: Computed tomography images of the lumbar spine without contrast. Radiation optimization: All CT scans at this facility use at least one of these dose optimization techniques: automated exposure control; mA and/or kV adjustment per patient size (includes targeted exams where dose is matched to clinical indication); or iterative reconstruction. COMPARISON: CR XR LUMBAR SPINE AP, LAT 05/03/2020 7:19 PM FINDINGS: Vertebrae: No acute fracture. Redemonstration of mild decrease in height at the anterior aspect of the L1 vertebral body, likely a chronic finding. Normal alignment. Discs/Spinal canal/Neural foramina: No significant disc protrusion. No severe spinal canal stenosis. No significant neural foraminal narrowing. Soft tissues: Unremarkable. IMPRESSION: No acute findings. Dictated and Authenticated by: Raine Albright MD. Ordering:JANE Martinez MD
[2020-05-03 21:40] VITALS: BP 122/78; PULSE 68; RESP 18; TEMP 36.6; O2SAT 99
== END 2020-05-03 21:40 | disposition home or self-care (01) ==
PROVIDERS: Emergency Provider Nurse Practitioner Acute Care; PCP Nurse Practitioner
DX: M54.5 Low back pain (principal); W00.0XXA Fall on same level due to ice and snow, initial encounter; Y99.0 Civilian activity done for income or pay
CPT/HCPCS: 96361; 96374; 99285; 72100; 74177; 81003; 81015; 99284; J1885; J3490

== ENCOUNTER 2020-12-19 01:51 | Outpatient (CLI) | payer OTHER, SELFPAY ==
--- NOTE | 2020-12-19 07:30 | DI.US_ITS ---
Exam(s) US HERNIA EXAM: US HERNIA CLINICAL HISTORY: pain on ambulation/wt bearing on right inguinal, RT INGUINAL PAIN, R10.31. TECHNIQUE: Ultrasound was performed using standard protocol. COMPARISON: No exams were available for comparison FINDINGS: Sonographic assessment utilizing grayscale and color Doppler imaging was performed and targeted to th e area of clinical concern. Sonographic evaluation of the right inguinal region shows no evidence of a hernia. No cystic or tank d masses are seen sonographically. IMPRESSION: No evidence of an inguinal hernia or mass sonographically. DATA REPOSITORY:
== END 2020-12-19 02:11 ==
PROVIDERS: PCP Nurse Practitioner; Visit Provider Nurse Practitioner Family
DX: R10.31 Right lower quadrant pain (principal)
CPT/HCPCS: 76857

== ENCOUNTER 2020-12-25 23:11 | Outpatient (CLI) | payer OTHER, SELFPAY ==
--- NOTE | 2020-12-25 14:00 | DI.RAD_ITS ---
Exam(s) XR KNEE LT 3V AP,LAT,ELLIS EXAM: XR KNEE LT 3V AP,LAT,ELLIS CLINICAL HISTORY: Left knee pain. Antalgic gait. M25.562 PAIN RT KNEE. TECHNIQUE: 2D digital imaging was performed of the left knee. Three images were obtained. AP, late ral, and PA tunnel views were obtained. COMPARISON: CR,XR XR LUMBAR SPINE AP, LAT from 05/03/2020 FINDINGS: BONES: No acute fracture is present. No bony destructive lesion is seen. JOINTS: The knee is normally aligned. No joint effusion is seen. SOFT TISSUE: Normal. IMPRESSION: Normal radiographs of the left knee. DATA REPOSITORY: RADIATION DOSE DELIVERED:
== END 2020-12-25 23:31 ==
PROVIDERS: PCP Nurse Practitioner; Visit Provider Nurse Practitioner Family
DX: M25.562 Pain in left knee (principal); R26.89 Other abnormalities of gait and mobility
CPT/HCPCS: 73562

== ENCOUNTER 2021-01-28 00:18 | Outpatient (CLI) | payer OTHER, SELFPAY ==
--- NOTE | 2021-01-28 06:30 | DI.MRI_ITS ---
Exam(s) MR LOWER JOINT LT WO EXAM: MR LOWER JOINT LT WO CLINICAL HISTORY: ? Medial Menicus injury or other derangement,lt knee pain, m25.562 TECHNIQUE: Multiplanar multisequence MRI of the knee was performed. COMPARISON: CR XR KNEE LT 3V AP,LAT,ELLIS from 12/25/2020 FINDINGS: EFFUSION: There is a large joint effusion. No Vivas cyst MARROW:Mild bone edema in the medial tibial plateau. There are no significant osseous lesions. PATELLOFEMORAL COMPARTMENT: The quadriceps tendon is intact. The patellar ligament is intact. There is mild uniform thinning of the retropatellar cartilage for this age group. No distinct fissur e. No osteochondral defect.There is no intraosseous signal to suggest recent patellar dislocation. T here are no patellar retinacular tears. CRUCIATE LIGAMENTS: The anterior cruciate ligament is intact.The posterior cruciate ligament is intac t. MEDIAL COMPARTMENT/MEDIAL MENISCUS: There is a complex tear of the posterior horn of the medial menis cus which involves both the anterior posterior horns. Exhibits an element of bucket-handle configura tion. There are no chondral defects, osteochondral defects, nor osteophytes. Some subarticular edema is se en posterior aspect of the tibial plateau at this level. MEDIAL COLLATERAL LIGAMENT: Intact LATERAL COMPARTMENT/LATERAL MENISCUS: There is a focal tear in posterior horn, midway between the out er aspect and the root. There is no bucket-handle configuration. Anterior horn is intact.There are no chondral defects, osteochondral defects, subarticular marrow edema, nor osteophytes evident. ILIOTIBIAL BAND: Intact LATERAL COLLATERAL LIGAMENT COMPLEX: The fibular collateral ligament is intact. The biceps femoris t endon is intact.Popliteus muscle and tendon are intact. IMPRESSION: 1. Complex tear of the medial meniscus involving both anterior posterior horns and with an element of bucket-handle configuration. No flipped fragments. Mild bone edema is noted in the subjacent media l tibial plateau. 2. Focal tear of the posterior horn of the lateral meniscus midway between root and outer 3rd. Anter ior horn of the lateral meniscus is intact. 3. No cruciate ligament tears. No collateral ligament tears. 4. Large joint effusion. No Vivas cyst. No loose intra-articular bodies. DATA REPOSITORY:
== END 2021-01-28 00:38 ==
PROVIDERS: PCP Nurse Practitioner; Visit Provider Nurse Practitioner Family
DX: M25.562 Pain in left knee (principal); S83.232A Complex tear of medial meniscus, current injury, left knee, initial encounter; S83.212A Bucket-handle tear of medial meniscus, current injury, left knee, initial encounter; S83.282A Other tear of lateral meniscus, current injury, left knee, initial encounter; M25.462 Effusion, left knee
CPT/HCPCS: 73721

== ENCOUNTER 2021-02-12 01:42 | Outpatient (CLI) | payer OTHER, SELFPAY ==
[2021-02-12 12:41] LABS: Source Nasal/Nares
[2021-02-12 16:05] LABS: COVID-19 PCR Negative (Negative)
== END 2021-02-12 01:43 | disposition home or self-care (01) ==
LOC: LBO 01:42
PROVIDERS: PCP Nurse Practitioner; Visit Provider Student in an Organized Health Care Education/Training Program
DX: Z20.822 Contact with and (suspected) exposure to COVID-19 (principal); Z01.818 Encounter for other preprocedural examination
CPT/HCPCS: 87635

== ENCOUNTER 2021-02-15 10:02 | Day surgery (SDC) | payer OTHER, SELFPAY ==
[2021-02-15] VITALS (12 sets, daily range): BP systolic 99–152; BP diastolic 62–83; PULSE 53–85; RESP 14–25; TEMP 36.2–36.6; TEMPC 36; O2SAT 86–100; BMI 30.7
--- NOTE | 2021-02-15 10:55 | ANES.PREOP_ITS ---
General Info Date of Service Date Performed: 02/15/21 Height: 6 ft 2 in Weight: 108.4 kg Body Mass Index (BMI): 30.7 Surgical Procedure: Operation Date: 02/15/21 11:10 Proposed Procedures Side Surgeon p Knee Arthroscopy w/medial and lateral meniscus repair vs menisectomy, microfracture, and synovectomy Left Nicolas Henderson MD Meds Allergies and Home Medications Allergies Allergy/AdvReac Type Severity Reaction Status Date / Time No Known Allergies Allergy Verified 02/15/21 10:50 Home Medication Medication Instructions Recorded lactobacillus combination no.8 3 3,000 mmu cells PO DAILY #30 cap 08/31/20 billion cell capsule ibuprofen 200 mg tablet 200 mg PO Q6H PRN 12/25/20 coektsze-ewcwirrp-clmpr acid 400 1 tab PO DAILY 12/25/20 mcg-vit K 20 mcg-lycop 300 mcg tablet Current Visit Medications: Current Medications Generic Name Dose Route Start Last Admin Trade Name Freq PRN Reason Stop Dose Admin Ringer's Solution 1,000 mls @ 100 mls/hr 02/15/21 06:00 IV 03/05/21 23:59 INFUSION RANDY Cefazolin Sodium 3,000 mg/ 100 mls @ 200 mls/hr 02/15/21 06:00 Sodium Chloride IVPB 02/15/21 16:00 PREOP [facility] IV Miscellaneous Supplies 1 each 02/15/21 06:00 Iv Access IV 03/05/21 23:59 DIRECTED RANDY Sodium Chloride 0 ml 02/15/21 06:00 Normal Saline Flush 10 Ml Syr IV 03/05/21 23:59 PRN PRN Sodium Chloride 0 ml 02/15/21 06:00 Normal Saline 10 Ml Vial IJ 03/05/21 23:59 DIRECTED PRN Sterile Water 0 ml 02/15/21 06:00 Water,Injection,Sterile 10 Ml Vial IJ 03/05/21 23:59 DIRECTED PRN PFSH Active Problems Active Problems: Problem Status Onset Code Synovitis of left knee M65.9 Tear of lateral meniscus of left knee S83.282A Bucket handle tear of medial meniscus of left knee 12/21/20 S83.212A Right inguinal pain R10.31 Right hip pain M25.551 Gastroesophageal reflux disease K21.9 Gynecomastia N62 Shoulder pain, acute M25.519 Right knee pain M25.561 Fatigue R53.83 RLS (restless legs syndrome) G25.81 Amie-Schlatter's disease M92.50 Tobacco Smoking/Tobacco Use Status: Former Tobacco Use Tobacco: How many years used: 10 Passive smoking exposure: Yes Second hand exposure: Yes Alcohol Alcohol Intake: current Alcohol intake frequency: a few times a week Alcohol type: beer and hard liquor Substance Use Substance use: Daily Substance use type: marijuana Vital Signs and Lab Results Vital Signs Most Recent Vital Signs in EMR: Most Recent Vital Signs Temp Pulse Resp BP Pulse Ox 36.4 C L 53 L 18 141/74 H 100 02/15/21 10:05 02/15/21 10:05 02/15/21 10:05 02/15/21 10:05 02/15/21 10:05 Lab Results Blood Type / Crossmatch: No Data to Display Complete Blood Count: No Data to Display Complete Metabolic Panel: No Data to Display Liver Function Panel: No Data to Display Coagulation Panel: No Data to Display Cardiac Panel: 2 No Data to Display Arterial Blood Gas: No Data to Display Venous Blood Gas: No Data to Display Pancreas Panel: No Data to Display Thyroid Panel: No Data to Display Infectious Disease: Coronavirus (COVID-19)(PCR) Negative (Negative) 02/12/21 10:57 02/12/21 Coronavirus 2019 Source Nasal/Nares 02/12/21 10:57 02/12/21 Blood Cultures: No Data to Display Toxicology Panel: No Data to Display Anesthesia Assessment and Plan Anesthesia History Personal History: No History of Anesthesia Complications Family History: No Family History of Anesthesia Complications (Reports father was slow to emerge) Exercise Tolerance Exercise Tolerance: Metabolic Equivalents>4 Pertinent Negatives Pertinent Negatives: No Symptoms of GERD, No Major Cardiovascular Symptoms or Complaints, No Major Pulmonary Symptoms or Complaints and No History of CVA/TIA Cardiac & Pulmonary Exam Cardiac Exam: Normal S1/S2 Heart Sounds Pulmonary Exam: Clear Bilateral Breath Sounds Implantable Cardiac Device Does patient have a Pacemaker or an ICD?: No Airway Exam Known Difficult Airway: No Mallampati Class: 2 Mouth Opening: Normal (> 3cm) Thyromental Distance: Greater than 3 cm Facial Hair: Full Lopez Neck Range of Motion: Full ROM Neck Circumference: Normal Teeth Condition: Normal Dentition Airway Comments: Tooth 21 previously repaired ASA Classification ASA Score: ASA 2 Emergency Case?: No NPO Status NPO Status: NPO Clears >2 hours, Solids >8 hours Anesthesia Plan Resuscitation Status: Full Code Anesthesia Technique: General Anesthesia Airway Planned: Endotracheal Tube Monitors Used: Standard Monitors
[2021-02-15] MEDS: Lactated Ringers 1,000 ML 100 ML IV (11:08)
[2021-02-15] MEDS: ceFAZolin 3,000 MG in Normal Saline 100 ML 200 MG IVPB (11:42)
[2021-02-15] MEDS: EPINEPHrine 30 MG/30 ML VIAL (14:15)
[2021-02-15] MEDS: MORPHine 4 MG/ML SYR (14:15)
--- NOTE | 2021-02-15 14:53 | W.PM.DSUDISC ---
Discharge Plan Disposition Patient Disposition: HOME Condition: Stable Discharge Details Reason For Visit: Left knee surgery Attending Provider: Nicolas Henderson Primary Care Provider: Jess Alonzo Home Meds and New Rx's Prescriptions: New aspirin 81 mg tablet,delayed release (DR/EC) 81 mg PO DAILY 14 Days Qty: 14 RF: 0 naproxen 250 mg tablet 250 - 500 mg PO BID PRN (Reason: Moderate pain or swelling) Qty: 60 RF: 0 oxycodone 5 mg tablet 5 - 10 mg PO Q4H PRN (Reason: moderate to severe pain) Qty: 22 RF: 0 Continued One-A-Day Men's Multivitamin 400-20-300 mcg tablet 1 tab PO DAILY RF: 0 Adult Probiotic 3 billion cell capsule 3,000 mmu cells PO DAILY Qty: 30 RF: 1 Discontinued ibuprofen 200 mg tablet 200 mg PO Q6H PRNRF: 0 Discharge Instructions Additional Instructions: Surgery: Left knee arthroscopy with medial meniscus repair, partial lateral meniscectomy, and synovectomy Activity: Partial weightbearing with crutches for 6 weeks. Restore full knee extension as soon as possible. Avoid flexion past 90 degrees for 6 weeks. Spin/bike and closed chain strengthening after 8 weeks. No cutting, pivoting, or weighted deep flexion for 3 months. A physical therapy prescription will be sent electronically to start in 2 to 3 weeks. Prescriptions: Aspirin 81 mg take 1 daily to prevent a blood clot for 14 days Naproxen 250 mg take 1-2 every 12 hours with a meal as needed for moderate pain Oxycodone 5 mg take 1-2 every 4-6 hours as needed for severe pain You may use ipsp-ifj-yumjeht Tylenol (acetaminophen) as needed for mild pain. These pain medications may be taken all at once or in different combinations as needed. Also, recommend Colace (docusate) as a stool softener as surgery and pain medicine cause constipation. Dressings: Leave dressing in place for 5 days. May then remove and leave open to air or cover incisions with Band-Aids. May shower after 7 days. Follow-up: 10-[address] Henderson Let us know right away if you develop any redness, drainage, fevers, chest pain, or trouble breathing. Do not drink alcohol or drive for at least 24 hours after anesthesia. Please call the office during business hours with any questions or concerns. Referrals: Nicolas Henderson MD [ [facility]] - Discharge Orders Discharge Orders: Discharge Order (Routine); Ordered 02/15/21 Ordered By: Nicolas Henderson DS: Diagnosis Discharge Diagnosis (1) Synovitis of left knee: Status: Acute (2) Tear of lateral meniscus of left knee: Status: Acute (3) Bucket handle tear of medial meniscus of left knee: Status: Acute
[2021-02-15] MEDS: fentaNYL 100 MCG/2 ML VIAL IVP ×2 (15:01→15:08)
--- NOTE | 2021-02-15 15:09 | W.ANESPOSTOP ---
Postoperative Evaluation Date, Time and Location Date Performed: 02/15/21 Time Performed: 15:08 Patient Location: PACU Vital Signs Most Recent Imported Vital Signs: Most Recent Vital Signs Temp Pulse Resp BP Pulse Ox 36.3 C L 70 17 146/68 H 99 02/15/21 15:00 02/15/21 15:05 02/15/21 15:05 02/15/21 15:05 02/15/21 15:05 Most Recent Manually Entered Vital Signs: Adult Blood Pressure: 146/68 Heart Rate: 68 Respirations: 22 Oxygen Saturation (%): 98 Temperature (C): 36 C Pain Score (0-10 Scale): 4 Pain Score Most Recent Pain Score: Most Recent Pain Score Pain Level 3 02/15/21 15:05 Assessment Mental Status: Arousable with meaningful communication Airway and Respiratory Function: Patent airway with normal (patient baseline) respiratory exam Cardiovascular Function: Hemodynamically Stable Hydration Status: Adequately Hydrated Nausea & Vomiting: No Nausea or Vomiting Pain: Pain is tolerable per patient Peripheral Nerve Block: Patient did not receive a nerve block
--- NOTE | 2021-02-15 15:13 | ROE_ITS ---
Date of service: 02/15/21 Time of Service: 13:00 Operative Note Operative Note DATE OF PROCEDURE: 02/15/21 PRE-OP DIAGNOSIS: Left knee 1. Medial meniscus tear 2. Lateral meniscus tear 3. Synovitis POST-OP DIAGNOSIS: same PROCEDURE: Left knee 1. Medial meniscus repair, CPT #97895 2. Partial lateral meniscectomy, CPT #65312 3. Microfracture, CPT #64462: Intercondylar 4. Greater than 2 compartment synovectomy, CPT #73824: Lateral, intracondylar, and patellofemoral SURGEON: Nicolas Henderson ENERGY CONSERVATION TECHNICIAN: Kiara Holt ANESTHESIA TYPE: Local By Surgeon and General LMA/ETT Refer to Anesthesia Record ESTIMATED BLOOD LOSS: 15 PATHOLOGY: none sent TOURNIQUET TIME: 0 COMPLICATIONS: None Patient was transported to: PACU Patient's condition: stable Implants: Medial meniscus: FiberStitch 2-0 FiberWire suture x2 in posterior horn; Mini SutureTape x4 meniscal body Indications: Please see complete medical record for details. Findings: Exam under anesthesia: Full range of motion, no instability. Arthroscopic findings: Significant anteromedial, anterolateral, intercondylar, and lateral compartment synovitis. Intact articular cartilage throughout. Intact ACL PCL. Small posterior horn lateral meniscus white zone radial tear with bulbous area adjacent. No significant extension into the red-white or red zone. Stable root. No additional tear in the posterior horn or lateral meniscal body. Medial meniscus with significant bucket-handle type tear involving the majority of the meniscus from the posterior horn to about the midpoint of the medial meniscus body. Stable root. Intact anterior horn. Procedure Description: In the operating room, genral anesthesia was induced. The patient was positioned supine on the operating room table. All bony pro minences were well-padded. Preoperative antibiotics were administered. The knee was prepped and draped in the usual sterile fashion. The correct patient, procedure, and side of the procedure were all verified prior to incision. Exam under anesthesia was performed. 20 cc of 0.5% bupivacaine containing epinephrine was infiltrated about the planned anteromedial and anterolateral knee arthroscopy portals as well as the potential outside in an inside-out areas along the medial lateral joint line. The portals were established and a complete diagnostic arthroscopy was performed with relevant findings detailed above. The mechanical shaver was used to remove abundant and pathologic pathologic synovium from the anteromedial, anterolateral, patellofemoral, and lateral compartments. An 8 x 2 passport was inserted anteromedial and an 8 x 3 passport was inserted anterolateral. Using a combination of hand and power instruments the posterior horn lateral meniscus tear was probed and resected to a smooth stable contour. The remnant, root, and remainder of the lateral meniscus was probed and The displaced bucket-handle component of the medial meniscus tear was unstable and a blunt obturator was used to reduce provisionally and hold in place. The rasp and shaver were then used to roughen up the meniscal remnant to optimize healing. Additionally an 18-gauge needle was used in an outside in fashion to localize the tear in the meniscal body with a small incision extended anteriorly and posteriorly along the joint line and then the needle inserted many times through the capsule and remnant meniscus about the body and into the posterior horn body junction to allow best bleeding and again optimize healing. The knee was positioned in moderate valgus and maintained in extension. An outside in horizontal mattress stitch was placed at the anterior extent of the tear with the meniscus held reduced with a crab claw in a horizontal mattress mini suture tape placed and provisionally tensioned maintain reduction on the meniscal body. An all inside fiber stitch device was then used with the sled to reduce and secure the center of the posterior horn aspect of the tear however the initial device failed to apply and an additional one was used without issue to place another horizontal mattress type suture. An additional outside in horizontal mattress mini suture tape repair stitch was placed using the microsuture lasso and the crab claw and provisionally tightened. An additional all inside device was then placed horizontal mattress at the posterior horn just off from the m eniscal root. A vertical mattress was attempted in the posterior horn between the 2 prior stitches but the fiber stitch device only deployed one of the capsular anchors with the other removed and a self knotting mechanism still used securing it potentially down to the capsule and part of the meniscus with the self not ball. The microsuture lassos crab color then used to place an additional repair stitch in a vertical mattress fashion between both outside and horizontal mattresses as well as the outside and horizontal mattress in the posterior horn horizontal mattress. The most anterior vertical mattress sutures were deemed too loose, cut out, and replaced with better tension. The meniscus was inspected through range of motion and probed and had excellent reduction and stability. There were 6 total repair stitches from the midpoint of the meniscal body through the posterior horn alternating horizontal and vertical mattress. Given the lack of concomitant cruciate ligament surgery with associated bone tunnels, decision was made to proceed with microfracture of the intercondylar area anterior to the ACL origin on the lateral femoral condyle in order to provide bone marrow stimulation and provide best chance of healing of this large displaced meniscus tear. The curved microfracture awl was brought in and under direct visualization impacted to the appropriate depth space and a number of holes a few millimeters of part. Inflow was turned off and confirmed appropriate bleeding from the punctures in the subchondral bone. Under direct arthroscopic visualization an 18-gauge needle was passed into the knee from superolateral into the suprapatellar pouch. The knee was copiously irrigated with arthroscopic fluid until there was a clear effluent before being drained of all fluid. The anteromedial and anterolateral portals as well as the medial small opening for Outside In repair were closed in 3-0 Monocryl in a buried interrupted fashion. 20 cc of 0.5% bupivacaine containing 4 mg of morphine was infiltrated into the knee through the previously placed needle. Mastisol, Steri-Strips, and 4 x 4 gauze were applied over the incisions followed by sterile soft roll. The knee was then wrapped gently with an SHAINA comressive bandage. The patient awoke from anesthesia without complication and was transferred to the recovery room in a stable condition.
[2021-02-15] MEDS: oxyCODONE 5 MG TAB PO (15:42)
[2021-02-15] MEDS: Acetaminophen 500 MG TAB 1000 MG PO (15:49)
== END 2021-02-15 17:02 | disposition home or self-care (01) ==
PROVIDERS: PCP Nurse Practitioner; Visit Provider Student in an Organized Health Care Education/Training Program
PROC: (CPT 29870; principal; 2021-02-15 11:00)
DX: S83.212A Bucket-handle tear of medial meniscus, current injury, left knee, initial encounter (principal); S83.282A Other tear of lateral meniscus, current injury, left knee, initial encounter; X50.3XXA Overexertion from repetitive movements, initial encounter; Y93.01 Activity, walking, marching and hiking; M65.862 Other synovitis and tenosynovitis, left lower leg
CPT/HCPCS: 29882; 29881; 29876; 29879; J0131; J0690; J1100; J1885; J2250; J2270; J2405; J2704; J3010

== ENCOUNTER 2021-06-28 03:30 | Outpatient (CLI) | payer OTHER, SELFPAY ==
[2021-06-28 08:40] LABS: Hemoglobin A1C 5.5 % (<5.7)
[2021-06-28 09:14] LABS: Calculated LDL 101 mg/dL (<100); Cholesterol 177 mg/dL (<200); HDL Cholesterol 66 mg/dL (40-60); TSH 0.55 uIU/mL (0.36-3.74); Triglyceride 52 mg/dL (<150)
== END 2021-06-28 03:31 | disposition home or self-care (01) ==
LOC: LBO 03:30
PROVIDERS: PCP Nurse Practitioner; Visit Provider Nurse Practitioner
DX: Z13.6 Encounter for screening for cardiovascular disorders (principal); Z13.1 Encounter for screening for diabetes mellitus; N62 Hypertrophy of breast
CPT/HCPCS: 36415; 80061; 83036; 84443

== ENCOUNTER 2021-07-11 08:40 | Outpatient (CLI) | payer OTHER, SELFPAY ==
--- NOTE | 2021-07-11 07:30 | DI.MRI_ITS ---
Exam(s) MR LOWER JOINT LT WO EXAM: MR LOWER JOINT LT WO CLINICAL HISTORY: Recurrent MMT,BUCKET HANDLE TEAR,S83.212A. TECHNIQUE: Multiplanar multisequence MRI was performed. COMPARISON: MR MR LOWER JOINT LT WO from 01/28/2021 FINDINGS: The examination is limited due to patient motion artifact. BONES: There is hyperintense signal seen in the medial femoral condyle and both the medial and latera l proximal tibia. JOINTS: Articular cartilage is unremarkable. Small joint effusion. TENDONS: Extensor mechanism: Unremarkable. Medial retinaculum: There appears to be a defect in the medial retinaculum. This may be postsurgical . Lateral retinaculum: Unremarkable. Popliteus: Unremarkable. MUSCLES: Unremarkable. MENISCI: There is complex hyperintense linear signal in the body and posterior horn of the medial men iscus. This may be postsurgical. The possibility of a re-tear cannot be excluded. The lateral meni scus is unremarkable. SOFT TISSUES: There is a small fluid collection associated with the tendons at the medial aspect of t he proximal tibia consistent with a pes anserine bursitis. LIGAMENTS: Anterior Cruciate: Unremarkable. Posterior Cruciate: Unremarkable. Medial Collateral:Unremarkable. Lateral Collateral: Unremarkable. OTHER: IMPRESSION: 1. Hyperintense signal seen in the body and posterior horn of the medial meniscus. This may reflect postsurgical changes. Possibly of a re-tear cannot be excluded. 2. No evidence of a ligament tear. 3. Marrow contusions involving the medial femoral condyle in the proximal tibia. 4. Small fluid collection associated with the tendons at the medial proximal tibia suggestive of pes anserine bursitis. DATA REPOSITORY:
== END 2021-07-11 09:00 ==
PROVIDERS: PCP Nurse Practitioner; Visit Provider Student in an Organized Health Care Education/Training Program
DX: M25.562 Pain in left knee; S83.212A Bucket-handle tear of medial meniscus, current injury, left knee, initial encounter; M25.462 Effusion, left knee; M70.52 Other bursitis of knee, left knee
CPT/HCPCS: 73721

== ENCOUNTER 2022-04-17 02:52 | Outpatient (CLI) | payer OTHER, SELFPAY ==
--- NOTE | 2022-04-17 07:45 | DI.MRI_ITS ---
Exam(s) MR THORACIC SPINE WO EXAM: MR THORACIC SPINE WO CLINICAL HISTORY: workman's comp, fall, back pain, m54.9. TECHNIQUE: Multiplanar multisequence MRI of the Thoracic spine was performed. COMPARISON: CR CHEST 2 VIEWS PA,LAT from 07/31/2011 FINDINGS: Bones: The vertebral body heights are well maintained. Alignment is satisfactory. The signal characte ristics are unremarkable. Cord: The thoracic cord is normal size and signal intensity. No intrinsic cord lesion is present. Discs: No disc herniation or bulge is present. No central spinal canal or neural foraminal stenosis i s present. Soft tissues: Normal. IMPRESSION: Normal MRI examination of the thoracic spine. DATA REPOSITORY:
--- NOTE | 2022-04-17 12:34 | DI.MRI_ITS ---
Exam(s) MR LUMBAR SPINE WO EXAM: MR LUMBAR SPINE WO CLINICAL HISTORY: workman's comp, fell, back pain , m54.9. TECHNIQUE: Multiplanar multisequence MRI of the Lumbar spine was performed. COMPARISON: CR,XR XR LUMBAR SPINE AP, LAT from 05/03/2020 FINDINGS: Bones: The last intervertebral disc space is designated the L5/S1 level for the numbering purpose of this examination. The vertebral body heights are well maintained. Alignment is satisfactory. There are mild degenerative endplate changes at L2-3 and L3-L4. Cord: The conus tip ends at the T12 level. It is of normal size and signal intensity. T12-L1: No disc herniations or bulges are present. No central spinal canal or neural foraminal stenos is. L1-2: No disc herniations or bulges are present. No central spinal canal or neural foraminal stenosis . L2-3: No disc herniations or bulges are present. No central spinal canal or neural foraminal stenosis . L3-4: No disc herniations or bulges are present. No central spinal canal or neural foraminal stenosis . L4-5: No disc herniations or bulges are present. No central spinal canal or neural foraminal stenosis . L5-S1: No disc herniations or bulges are present. No central spinal canal or neural foraminal stenosi s. Soft tissues: The visualized SI joints and sacrum are well maintained. The paraspinal soft tissues ar e unremarkable. IMPRESSION: No evidence of significant spinal stenosis or neuroforaminal narrowing. DATA REPOSITORY:
== END 2022-04-17 03:12 ==
PROVIDERS: PCP Nurse Practitioner Family; Visit Provider Nurse Practitioner Family
DX: M54.9 Dorsalgia, unspecified (principal); W19.XXXA Unspecified fall, initial encounter
CPT/HCPCS: 72146; 72148

== ENCOUNTER 2022-05-13 03:42 | Outpatient (CLI) | payer OTHER, SELFPAY ==
[2022-05-13 12:47] LABS: Abs Immature Grans 0.03 10^3/uL (0.0-0.06); Absolute Basophil Count 0.05 10^3/uL (0.0-0.2); Absolute Eosinophil Count 0.24 10^3/uL (0.0-0.7); Absolute Lymphocyte Count 2.12 10^3/uL (1.2-3.4); Absolute Monocyte Count 0.44 10^3/uL (0.1-0.8); Basophils % 0.9; Eosinophils % 4.4; HCT 45.4 % (40.0-50.0); HGB 15.3 g/dL (13.5-17.5); Immature Grans % 0.5; Lymphocytes % 38.7; MCH 29.4 pg (27.0-33.0); MCHC 33.7 % (32.0-36.0); MCV 87 fL (80-95); MPV 12.8 fL (8.0-11.0); Neutrophils % 47.5; Platelet Count 140 10^3/uL (130-400); RBC 5.21 10^6/uL (4.36-5.78); RDW 13.7 % (11.8-14.1); RDW-SD 44.1 fL; WBC 5.48 10^3/uL (4.4-10.8)
[2022-05-13 13:10] LABS: C-Reactive Protein < 0.05 mg/dL (0.0-0.3)
[2022-05-13 13:16] LABS: ESR < 1 mm/hr (0-15)
[2022-05-14 07:57] LABS: Cyclic Citrullinated Peptide <2.5 U/mL (<5.0)
[2022-05-14 09:15] LABS: Lyme Ab w Rflx to Lyme Confirm Negative (Negative)
[2022-05-15 14:54] LABS: ANA Interpretation Negative (Negative)
[2022-05-15 17:16] LABS: Anaplasma phagocytophilum Negative (Negative); B. miyamotoi PCR Negative (Negative); Babesia divergens/MO-1 Negative (Negative); Babesia duncani Negative (Negative); Babesia microti Negative (Negative); Ehrlichia chaffeensis Negative (Negative); Ehrlichia ewingii/canis Negative (Negative); Ehrlichia muris eauclairensis Negative (Negative)
== END 2022-05-13 03:43 | disposition home or self-care (01) ==
LOC: LOS 03:42
PROVIDERS: PCP Nurse Practitioner Family; Visit Provider Nurse Practitioner Family
DX: M25.50 Pain in unspecified joint (principal); M79.18 Myalgia, other site
CPT/HCPCS: 36415; 85652; 86200; 87798; 85025; 86038; 86140; 86618

== ENCOUNTER 2022-05-16 11:12 | Emergency (ER) | payer OTHER, SELFPAY ==
[2022-05-16 11:16] VITALS: BP 170/82; PULSE 51; O2SAT 99
--- NOTE | 2022-05-16 12:15 | DI.RAD_ITS ---
Exam(s) XR KNEE LT 3V AP,LAT,ELLIS EXAM: XR KNEE LT 3V AP,LAT,ELLIS CLINICAL HISTORY: Fall, Knee pain, Hx of meniscus tear. TECHNIQUE: 2D digital imaging was performed of the left knee. Three images were obtained. AP, late ral and PA tunnel views were obtained. COMPARISON: CR XR KNEE LT 3V AP,LAT,ELLIS from 12/25/2020 FINDINGS: BONES: No acute fracture is present. No bony destructive lesion is seen. JOINTS: The knee is normally aligned. No joint effusion is seen. SOFT TISSUE: Normal. IMPRESSION: Normal radiographs of the left knee. DATA REPOSITORY: RADIATION DOSE DELIVERED:
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
[2022-05-16] MEDS: traMADol 50 MG TAB PO (12:45)
[2022-05-16 13:46] VITALS: BP 151/69; PULSE 55; RESP 15; O2SAT 98
== END 2022-05-16 13:51 | disposition home or self-care (01) ==
PROVIDERS: Emergency Provider Registered Nurse Emergency; PCP Nurse Practitioner Family
DX: S83.8X2A Sprain of other specified parts of left knee, initial encounter (principal); X50.1XXA Overexertion from prolonged static or awkward postures, initial encounter
CPT/HCPCS: 29505; 73562; 99283

== ENCOUNTER 2022-07-04 00:48 | Outpatient (CLI) | payer OTHER, SELFPAY ==
--- NOTE | 2022-07-04 07:00 | DI.MRI_ITS ---
Exam(s) MR LOWER JOINT LT WO EXAM: MR LOWER JOINT LT WO CLINICAL HISTORY: ? MEDIAL MENISCAL TEAR,lt knee injury, pain,s89.92xa. TECHNIQUE: Multiplanar multisequence MRI was performed. COMPARISON: MR MR LOWER JOINT LT WO from 07/11/2021 CR XR KNEE LT 3V AP,LAT,ELLIS from 05/16/2022 FINDINGS: BONES: There is no fracture or contusion pattern. Minimal high signal in the medial femoral condyle could be degenerative or per surgical. JOINTS: A small joint effusion is present. Articular cartilage: Patellofemoral joint: Articular cartilage is unremarkable. Medial femoral tibial joint: Articular cartilage is unremarkable. Lateral femoral tibial joint: Articular cartilage is unremarkable. TENDONS: Extensor mechanism: Unremarkable. Medial retinaculum: Unremarkable. Lateral retinaculum: Unremarkable. Popliteus: Unremarkable. MUSCLES: Unremarkable. MENISCI: The medial meniscus again shows a radial high area of the linear high signal in the body of the medial meniscus. There is some extension of amorphous high signal into the posterior horn. Some linear high signal noted in the anterior horn. Findings a appear unchanged from prior. The lateral meniscus is unremarkable. SOFT TISSUES: Mild metallic artifact medial soft tissues related to prior surgery. LIGAMENTS: Anterior Cruciate: Unremarkable. Posterior Cruciate: Unremarkable. Medial Collateral:Unremarkable. Lateral Collateral: Unremarkable. OTHER: Decreased amount of fluid around the pes anserine tendons. No Vivas's cyst. IMPRESSION: No change in appearance of medial meniscus. No evidence of acute tear. Some improvement in pes anserine bursitis. No new findings. DATA REPOSITORY:
== END 2022-07-04 01:08 ==
LOC: DI 00:49
PROVIDERS: PCP Nurse Practitioner Family; Visit Provider Student in an Organized Health Care Education/Training Program
DX: S89.82XA Other specified injuries of left lower leg, initial encounter; M25.562 Pain in left knee; M25.462 Effusion, left knee
CPT/HCPCS: 73721

== ENCOUNTER 2022-07-24 10:59 | Day surgery (SDC) | payer OTHER, SELFPAY ==
--- NOTE | 2022-07-24 07:11 | ROE_ITS ---
Date of service: 07/24/22 Time of Service: 14:00 Operative Note Operative Note DATE OF PROCEDURE: 07/24/22 PRE-OP DIAGNOSIS: Left knee 1. Failed bucket-handle medial meniscus repair POST-OP DIAGNOSIS: same PROCEDURE: Left knee 1. Partial medial meniscectomy, CPT #55750 SURGEON: Nicolas Henderson ANESTHESIA TYPE: Local By Surgeon and General LMA/ETT Refer to Anesthesia Record ESTIMATED BLOOD LOSS: 5 PATHOLOGY: none sent TOURNIQUET TIME: 0 COMPLICATIONS: None Patient was transported to: PACU Patient's condition: stable Indications: Please see complete medical record for details. Findings: Exam under anesthesia: Full range of motion, no instability. Arthroscopic findings: Failed medial meniscus bucket-handle tear repair with maintained, reduced meniscus but complete lack of healing through the meniscal body and into the posterior and anterior horns. Intact suture material to peripheral remnant, but failing and loosening from friable meniscal torn white and red-white zone tissue. Mild generalized medial femoral condyle and medial to plateau chondromalacia. Intact lateral compartment cartilage. Intact lateral meniscus. Intact ACL. Moderate focal undersurface superior and central patellar chondromalacia. Small medial gutter scar tissue type plical band. Procedure Description: In the operating room, genral anesthesia was induced. The patient was positioned supine on the operating room table. All bony prominences were well- padded. Preoperative antibiotics were administered. The knee was prepped and draped in the usual sterile fashion. The correct patient, procedure, and side of the procedure were all verified prior to incision. Exam under anesthesia was performed. 20 cc of 0.5% bupivacaine containing epinephrine was infiltrated about the planned anteromedial and anterolateral knee arthroscopy portals. The portals were established and a complete diagnostic arthroscopy was performed with relevant findings detailed above. Alternating and viewing through the anteromedial and anterolateral portals the medial meniscus was approached. Initial expansion showed reduced, intact medial meniscus. On probing the prior tear repair was readily displaceable and the white and red-white zones friable. I was quickly able to resect this nonviable meniscal tissue with shaver and biters revealing failed majority of the body tear repair with some failure extension into the posterior and anterior horns. The posterior root was stable. Care was taken to resect all failed and torn meniscal tissue to a stable margin. Permanent suture material removed about the failed healing zone. The remaining peripheral meniscus at the body as well as the moderately preserved anterior and posterior horns were probed and ensured to be stable without additional tearing. Under direct arthroscopic visualization an 18-gauge needle was passed into the knee from superolateral into the suprapatellar pouch. The knee was copiously irrigated with arthroscopic fluid until there was a clear effluent before being drained of all fluid. The anteromedial and anterolateral portals were closed in 3-0 Monocryl in a buried interrupted fashion. 20 cc of 0.5% bupivacaine containing 4 mg of morphine was infiltrated into the knee through the previously placed needle. Mastisol, Steri-Strips, and 4 x 4 gauze were applied over the incisions followed by sterile soft roll. The knee was then wrapped gently with an SHAINA comressive bandage. The patient awoke from anesthesia without complication and was transferred to the recovery room in a stable condition.
--- NOTE | 2022-07-24 07:13 | W.PM.DSUDISC ---
Date of service: 07/24/22 Time of Service: 15:00 Discharge Plan Disposition Patient Disposition: Home Discharge Details Attending Provider: Nicolas Henderson Primary Care Provider: Tariq Blas Home Meds and New Rx's Prescriptions: New naproxen 250 mg tablet 250 - 500 mg PO BID PRNQty: 40 0RF Rx Instructions: take with a meal aspirin 81 mg tablet,delayed release (DR/EC) 81 mg PO DAILY 7 Days Qty: 7 0RF oxycodone 5 mg tablet 5 - 10 mg PO Q4H MDD 30 mg PRN (Reason: moderate to severe pain) Qty: 18 0RF Continued escitalopram oxalate [Lexapro] 20 mg tablet 20 mg PO DAILY Qty: 90 3RF cholecalciferol (vitamin D3) [Vitamin D3] 125 mcg (5,000 unit) Tablet PO 1XD magnesium oxide 348 mg magne- sium (600 mg) Capsule PO 1XD nettle leaf (bulk) 2 % Powder MISCELLANEOUS Discharge Instructions Additional Instructions: Surgery: Left knee arthroscopy with partial medial meniscectomy after failed bucket-handle meniscus repair Activity: Weightbearing as tolerated. Advance range of motion as comfort allows. No knee brace or crutches needed as soon as comfortable. Recommend avoiding high-impact activities, pivoting, and squatting for 6-8 weeks. A physical therapy prescription will be provided separately in the office on follow-up if needed. Prescriptions: Aspirin 81 mg take 1 daily to prevent a blood clot for 7 days Naproxen 250 mg take 1-2 every 12 hours with a meal as needed for moderate pain Oxycodone 5 mg take 1-2 every 4-6 hours as needed for severe pain You may use [id number] Tylenol (acetaminophen) as needed for mild pain. These pain medications may be taken all at once or in different combinations as needed. Also, recommend Colace (docusate) as a stool softener as surgery and pain medicine cause constipation. You may try [id number] diphenhydramine (Benadryl) 25-50 mg nightly as a sleep aid Dressings: Leave dressing in place for 3 days. May then remove and leave open to air or cover incisions with Band-Aids. Leave the sticky Steri-Strips in place until they fall off or remove them after you shower. May shower after 5 days. Follow-up: 10-[address] Henderson You may take off the leg compression stockings this evening at home. You may also leave them on a few days longer if you have a history of leg swelling or edema. Let us know right away if you develop any redness, drainage, fevers, chest pain, or trouble breathing. Do not drink alcohol or drive for at least 24 hours after anesthesia. Please call the office during business hours with any questions or concerns. Discharge Orders Discharge Orders: Discharge Order (Routine); Ordered 07/24/22 Ordered By: Nicolas Henderson DS: Diagnosis Discharge Diagnosis (1) Tear of lateral meniscus of left knee: Status: Acute
--- NOTE | 2022-07-24 08:14 | W.ANESPRE ---
General Info Date of Service Date Performed: 07/24/22 Height: 6 ft 2 in Weight: 113.398 kg Body Mass Index (BMI): 32.1 Surgical Procedure: Operation Date: 07/24/22 12:25 Proposed Procedure Side Surgeon p Knee Arthroscopy w/ any other indicated surgery Left Nicolas Henderson MD Meds Allergies and Home Medications Allergies Allergy/AdvReac Type Severity Reaction Status Date / Time No Known Allergies Allergy Verified 07/23/22 14:12 Home Medication Medication Instructions Recorded escitalopram oxalate 20 mg tablet 20 mg PO DAILY #90 tabs 07/04/22 (Lexapro) cholecalciferol (vitamin D3) 125 unit PO 1XD 07/24/22 mcg (5,000 unit) tablet (Vitamin D3) magnesium oxide 348 mg magnesium mg PO 1XD 07/24/22 (600 mg) capsule nettle leaf (bulk) 2 % powder pwd miscellaneous 07/24/22 Current Visit Medications: Current Medications Generic Name Dose Route Start Last Admin Trade Name Freq PRN Reason Stop Dose Admin Ringer's Solution 1,000 mls @ 30 mls/hr 07/24/22 06:00 IV 08/22/22 23:59 INFUSION RANDY Cefazolin Sodium/Dextrose 2 gm in 50 mls @ 100 mls/hr 07/24/22 06:00 Ancef Duplex IVPB 08/22/22 23:59 PREOP RANDY IV Miscellaneous Supplies 1 each 07/24/22 06:00 Iv Access IV 08/22/22 23:59 DIRECTED RANDY Oxycodone HCl 0 mg 07/24/22 07:11 Oxycodone 5 Mg Tab PO Q3H PRN PRN Pain Sodium Chloride 0 ml 07/24/22 06:00 Normal Saline Flush 10 Ml Syr IV 08/22/22 23:59 PRN PRN Sodium Chloride 0 ml 07/24/22 06:00 Normal Saline 10 Ml Vial IJ 08/22/22 23:59 DIRECTED PRN Sterile Water 0 ml 07/24/22 06:00 Water,Injection,Sterile 10 Ml Vial IJ 08/22/22 23:59 DIRECTED PRN PFSH Active Problems Active Problems: Problem Status Onset Code Tear of lateral meniscus of left knee S83.282A [place]-Schlatter's disease M92.50 RLS (restless legs syndrome) G25.81 Fatigue R53.83 Right knee pain M25.561 Shoulder pain, acute M25.519 Gynecomastia N62 Gastroesophageal reflux disease K21.9 Right hip pain M25.551 Right inguinal pain R10.31 Bucket handle tear of medial meniscus of left knee 12/21/20 S83.212A Difficult airway for intubation T88.4XXA Testicular pain, left N50.812 Anxiety F41.9 Arthralgia M25.50 Medical History Medical History Synovitis of left knee Tear of lateral meniscus of left knee Medical History Comments:: See note Tobacco Smoking/Tobacco Use Status: Former Tobacco Use Passive smoking exposure: Yes Second hand exposure: Yes Alcohol Alcohol Intake: current Alcohol intake frequency: a few times a week Alcohol type: beer and hard liquor Substance Use Substance use: Daily Substance use type: marijuana Vital Signs and Lab Results Vital Signs Most Recent Vital Signs in EMR: Temp Pulse Resp BP Pulse Ox 36.6 C 54 L 16 126/69 97 07/24/22 11:41 07/24/22 11:41 07/24/22 11:41 07/24/22 11:41 07/24/22 11:41 Lab Results Blood Type / Crossmatch: No Data to Display Complete Blood Count: No Data to Display Complete Metabolic Panel: No Data to Display Liver Function Panel: No Data to Display Coagulation Panel: No Data to Display Cardiac Panel: No Data to Display Arterial Blood Gas: No Data to Display Venous Blood Gas: No Data to Display Pancreas Panel: No Data to Display Thyroid Panel: No Data to Display Infectious Disease: No Data to Display Blood Cultures: No Data to Display Toxicology Panel: No Data to Display Anesthesia Assessment and Plan Anesthesia History Personal History: Other (see note below regarding airway) Family History: No Family History of Anesthesia Complications Exercise Tolerance Exercise Tolerance: Metabolic Equivalents>4 Pertinent Negatives Pertinent Negatives: No Major Cardiovascular Symptoms or Complaints and No Major Pulmonary Symptoms or Complaints Cardiac & Pulmonary Exam Cardiac Exam: Normal S1/S2 Heart Sounds Pulmonary Exam: Clear Bilateral Breath Sounds Implantable Cardiac Device Does patient have a Pacemaker or an ICD?: No Airway Exam Known Difficult Airway: No Mallampati Class: 2 Mouth Opening: Normal (> 3cm) Thyromental Distance: Greater than 3 cm Neck Range of Motion: Full ROM Neck Circumference: Normal Teeth Condition: Normal Dentition Airway Comments: Tooth 21 previously repaired ASA Classification ASA Score: ASA 2 Emergency Case?: No NPO Status NPO Status: NPO Clears >2 hours, Solids >8 hours Anesthesia Plan Resuscitation Status: Full Code Anesthesia Technique: General Anesthesia Airway Planned: Endotracheal Tube Monitors Used: Standard Monitors Preoperative Comments:: 26 yo for knee scope. Sig PMHx: GERD, anxiety (lexapro), former smoker, occ EtOH, daily cannabis. Previous Anes: - knee scope, mac 4 grade 4, glide 3 for grade 2b, glide 4 was recommended per note for future. masked with OPA.
[2022-07-24 11:41] VITALS: BP 126/69; PULSE 54; RESP 16; TEMP 36.6; O2SAT 97
[2022-07-24] MEDS: Lactated Ringers 1,000 ML 30 ML IV (12:00)
[2022-07-24 13:22] VITALS: BMI 32.1
[2022-07-24] MEDS: ceFAZolin 2 GM/50 ML BAG IVPB (13:50)
[2022-07-24] MEDS: MORPHine 4 MG/ML SYR (14:20)
[2022-07-24] MEDS: Bupivacaine 0.5% Pres-Free W/EPI 30 ML VIAL (14:20)
[2022-07-24] MEDS: EPINEPHrine 30 MG/30 ML VIAL (14:53)
[2022-07-24 14:57] VITALS: BP 142/67; PULSE 72; RESP 18; TEMP 36.5; O2SAT 96
[2022-07-24 15:02] VITALS: BP 146/75; PULSE 75; RESP 17; TEMP 36.5; O2SAT 97
[2022-07-24 15:07] VITALS: BP 147/84; PULSE 75; RESP 24; TEMP 36.5; O2SAT 96
[2022-07-24] MEDS: fentaNYL 100 MCG/2 ML VIAL IVP (15:10)
[2022-07-24 15:22] VITALS: BP 156/90; PULSE 61; RESP 18; TEMP 36.5; O2SAT 99
--- NOTE | 2022-07-24 15:22 | W.ANESPOSTOP ---
Postoperative Evaluation Date, Time and Location Date Performed: 07/24/22 Time Performed: 15:22 Patient Location: PACU Vital Signs Most Recent Imported Vital Signs: Most Recent Vital Signs Temp Pulse Resp BP Pulse Ox 36.5 C 75 24 147/84 H 96 07/24/22 15:07 07/24/22 15:07 07/24/22 15:07 07/24/22 15:07 07/24/22 15:07 Pain Score Most Recent Pain Score: Most Recent Pain Score Pain Level 8 07/24/22 15:07 Assessment Mental Status: Awake (Alert & Oriented to Patient Baseline) Airway and Respiratory Function: Patent airway with normal (patient baseline) respiratory exam Cardiovascular Function: Hemodynamically Stable Hydration Status: Adequately Hydrated Nausea & Vomiting: No Nausea or Vomiting Pain: Pain is tolerable per patient Peripheral Nerve Block: Patient did not receive a nerve block
[2022-07-24] MEDS: oxyCODONE 5 MG TAB PO (15:43)
[2022-07-24 15:45] VITALS: BP 141/82; BP 143/77; PULSE 51; PULSE 53; RESP 16; TEMP 36.6; TEMP 36.7; O2SAT 98; O2SAT 99
== END 2022-07-24 16:30 | disposition home or self-care (01) ==
PROVIDERS: PCP Nurse Practitioner Family; Visit Provider Student in an Organized Health Care Education/Training Program
PROC: (CPT 29870; principal; 2022-07-24 12:15)
DX: S83.282A Other tear of lateral meniscus, current injury, left knee, initial encounter (principal); X58.XXXA Exposure to other specified factors, initial encounter
CPT/HCPCS: 29881; J0131; J0690; J1100; J2270; J2405; J3010; J3475

== ENCOUNTER 2023-03-10 14:57 | Outpatient (CLI) | payer OTHER, SELFPAY ==
--- NOTE | 2023-03-10 12:07 | DI.RAD_ITS ---
Exam(s) XR KNEE RT 3V AP,LAT,ELLIS EXAM: XR KNEE RT 3V AP,LAT,ELLIS CLINICAL HISTORY: RIGHT KNEE PAIN. TECHNIQUE: 2D digital imaging was performed. Four views of the right knee. Two views of the left k nee.. COMPARISON: MR MR LOWER JOINT LT WO from 07/04/2022 FINDINGS: BONES: No acute fracture is present. No bony destructive lesion is seen. JOINTS: The knee is normally aligned. No joint effusion is seen. The joint spaces are maintained bila terally. SOFT TISSUE: Normal. IMPRESSION: Unremarkable radiographs of both knees.. DATA REPOSITORY: RADIATION DOSE DELIVERED:
--- NOTE | 2023-03-10 13:30 | DI.RAD_ITS ---
Exam(s) XR KNEE LT 2V AP,LAT EXAM: XR KNEE RT 3V AP,LAT,ELLIS CLINICAL HISTORY: RIGHT KNEE PAIN. TECHNIQUE: 2D digital imaging was performed. Four views of the right knee. Two views of the left k nee.. COMPARISON: MR MR LOWER JOINT LT WO from 07/04/2022 FINDINGS: BONES: No acute fracture is present. No bony destructive lesion is seen. JOINTS: The knee is normally aligned. No joint effusion is seen. The joint spaces are maintained bila terally. SOFT TISSUE: Normal. IMPRESSION: Unremarkable radiographs of both knees.. DATA REPOSITORY: RADIATION DOSE DELIVERED:
== END 2023-03-10 14:58 | disposition home or self-care (01) ==
LOC: DIORS 14:57
PROVIDERS: PCP Nurse Practitioner Family; Visit Provider Student in an Organized Health Care Education/Training Program
DX: M25.561 Pain in right knee (principal); M25.562 Pain in left knee
CPT/HCPCS: 73562; 73560

== ENCOUNTER → 2023-03-27 01:04 | Outpatient (CLI) | payer OTHER, SELFPAY ==
--- NOTE | 2023-03-27 07:00 | DI.MRI_ITS ---
Exam(s) MR LOWER JOINT RT WO EXAM: MR LOWER JOINT RT WO CLINICAL HISTORY: R KNEE PAIN, ? MENISCAL TEAR,m25.561,s83.212a. TECHNIQUE: Multiplanar multisequence MRI was performed. COMPARISON: CR XR KNEE RT 3V AP,LAT,ELLIS from 03/10/2023 FINDINGS: BONES: No acute fractures identified. JOINTS: Mild thinning of the articular cartilage and subchondral edema in the medial aspect of the me dial femoral condyle and the proximal tibia. Small joint effusion. Mild thinning of the articular c artilage in the inferior aspect of the patella. TENDONS: Extensor mechanism: Unremarkable. Medial retinaculum: Unremarkable. Lateral retinaculum: Unremarkable. Popliteus: Unremarkable. MUSCLES: Unremarkable. MENISCI: There is degeneration in the medial meniscus. There is hyperintense signal seen at the supe rior surface of the posterior horn of the medial meniscus medially suspicious for tear. (Series 1400 1, image 29, series 85005, image 22). The lateral meniscus is unremarkable. SOFT TISSUES: There is a small popliteal cyst. LIGAMENTS: Anterior Cruciate: Unremarkable. Posterior Cruciate: Unremarkable. Medial Collateral:Unremarkable. Lateral Collateral: Unremarkable. OTHER: IMPRESSION: 1. Tear of the superior surface of the posterior horn of the medial meniscus. 2. Mild cartilage thinning and subchondral edema involving the medial femoral tibial joint. 3. Mild cartilage thinning in the inferior aspect of the patella. 4. Small joint effusion. 5. No evidence of a ligament tear. DATA REPOSITORY:
== END ==
PROVIDERS: PCP Nurse Practitioner Family; Visit Provider Student in an Organized Health Care Education/Training Program
DX: M25.561 Pain in right knee (principal); S83.212A Bucket-handle tear of medial meniscus, current injury, left knee, initial encounter; X58.XXXA Exposure to other specified factors, initial encounter
CPT/HCPCS: 73721

== ENCOUNTER 2023-05-01 09:06 | Day surgery (SDC) | payer OTHER, SELFPAY ==
[2023-05-01] VITALS (9 sets, daily range): BP systolic 117–147; BP diastolic 39–64; PULSE 53–61; RESP 16–19; TEMP 36.2–36.7; O2SAT 97–99; BMI 30.7
--- NOTE | 2023-05-01 07:30 | W.PM.DSUDISC ---
Date of service: 05/01/23 Time of Service: 14:00 Discharge Plan Disposition Patient Disposition: Home Condition: Stable Discharge Details Attending Provider: Nicolas Henderson Primary Care Provider: Tariq Blas Home Meds and New Rx's Prescriptions: New naproxen 250 mg tablet 250 - 500 mg PO BID PRNQty: 40 0RF Rx Instructions: take with a meal aspirin 81 mg tablet,delayed release (DR/EC) 81 mg PO DAILY 14 Days Qty: 14 0RF oxycodone 5 mg tablet 5 - 10 mg PO Q4H MDD 30 mg PRN (Reason: moderate to severe pain) Qty: 12 0RF Continued escitalopram oxalate [Lexapro] 20 mg tablet 20 mg PO DAILY Qty: 90 3RF Patient Comments: Pt. stated he takes this on and off when he feels like it, was trying to wean himself off medication. Pt. was instructed if he changes dosing instructions aside from that ordering provider wrote for, he should consult them first to inform them he is taking it differently, or if he wishes to stop. Pt. stated understanding. Discharge Instructions Additional Instructions: Surgery: Right knee arthroscopy with partial medial and lateral meniscectomy Activity: Weightbearing as tolerated. Advance range of motion as comfort allows. It is important to restore full extension soon as possible. Recommend elevation to minimize swelling and discomfort. No knee brace or crutches needed as soon as comfortable. Perform ankle pumps and wiggle toes to increase circulation and prevent stiffness. Avoid work on feet including squatting, pivoting, climbing up and down from a truck, and moving heavy packages for about 6-8 weeks. A physical therapy prescription will be sent electronically to start in 2 to 3 weeks. Prescriptions: Aspirin 81 mg take 1 daily to prevent a blood clot for 14 days Naproxen 250 mg take 1-2 every 12 hours with a meal as needed for moderate pain Oxycodone 5 mg take 1-2 every 4-6 hours as needed for severe pain You may use [id number] Tylenol (acetaminophen) as needed for mild pain. These pain medications may be taken all at once or in different combinations as needed. Also, recommend Colace (docusate) as a stool softener as surgery and pain medicine cause constipation. You may try [id number] diphenhydramine (Benadryl) 25-50 mg nightly as a sleep aid Dressings: Leave dressing in place for 3 days. May then remove and leave open to air or cover incisions with Band-Aids. Leave the sticky Steri-Strips in place until they fall off or remove them after you shower. May shower after 5 days. Follow-up: 10-[address] Henderson You may take off the leg compression stockings this evening at home. You may also leave them on a few days longer if you have a history of leg swelling or edema. Let us know right away if you develop any redness, drainage, fevers, chest pain, or trouble breathing. Do not drink alcohol or drive for at least 24 hours after anesthesia. Please call the office during business hours with any questions or concerns. Stand Alone Forms: Anesthesia Discharge Inst.[facility] (DSU) Referrals: Nicolas Henderson MD [ [facility] STAFF PHYSICIAN] - 05/12/23 10:15 am Discharge Orders Discharge Orders: Discharge Order (Routine); Ordered 05/01/23 Ordered By: Nicolas Henderson DS: Diagnosis Discharge Diagnosis (1) Acute medial meniscus tear of right knee: Status: Acute (2) Tear of lateral meniscus of right knee: Status: Acute (3) Chondromalacia, right knee: Status: Acute
[2023-05-01] MEDS: Lactated Ringers 1,000 ML 30 ML IV (09:40)
--- NOTE | 2023-05-01 10:50 | ANES.PREOP_ITS ---
General Info Date of Service Date Performed: 05/01/23 Height: 6 ft 2 in Weight: 108.4 kg Body Mass Index (BMI): 30.7 Surgical Procedure: Operation Date: 05/01/23 10:55 Proposed Procedure Side Surgeon p Knee Arthroscopy w Possible Medial Meniscus Repair w/Intercondylar Micro Fx Right Nicolas Henderson MD Meds Allergies and Home Medications Allergies Allergy/AdvReac Type Severity Reaction Status Date / Time No Known Allergies Allergy Verified 05/01/23 09:36 Home Medication Medication Instructions Recorded escitalopram oxalate 20 mg tablet 20 mg PO DAILY #90 tabs 07/04/22 (Lexapro) Current Visit Medications: Current Medications Generic Name Dose Route Start Last Admin Trade Name Freq PRN Reason Stop Dose Admin Ringer's Solution 1,000 mls @ 30 mls/hr 05/01/23 06:00 05/01/23 09:40 IV 05/01/23 23:59 30 mls/hr INFUSION RANDY Administration Cefazolin Sodium/Dextrose 2 gm in 50 mls @ 100 mls/hr 05/01/23 06:00 Ancef Duplex IVPB 05/01/23 23:59 PREOP RANDY IV Miscellaneous Supplies 1 each 05/01/23 06:00 Iv Access IV 05/01/23 23:59 DIRECTED RANDY Oxycodone HCl 0 mg 05/01/23 07:28 Oxycodone 5 Mg Tab PO 05/31/23 07:27 Q3H PRN PRN Pain Sodium Chloride 0 ml 05/01/23 06:00 Normal Saline Flush 10 Ml Syr IV 05/01/23 23:59 PRN PRN Sodium Chloride 0 ml 05/01/23 06:00 Normal Saline 10 Ml Vial IJ 05/01/23 23:59 DIRECTED PRN Sterile Water 0 ml 05/01/23 06:00 Water,Injection,Sterile 10 Ml Vial IJ 05/01/23 23:59 DIRECTED PRN PFSH Active Problems Active Problems: Problem Status Onset Code Acute medial meniscus tear of right knee S83.241A Back pain M54.9 Injury of meniscus of right knee S83.8X1A [place]-Schlatter's disease M92.50 RLS (restless legs syndrome) G25.81 Fatigue R53.83 Right knee pain M25.561 Shoulder pain, acute M25.519 Gynecomastia N62 Gastroesophageal reflux disease K21.9 Right hip pain M25.551 Right inguinal pain R10.31 Bucket handle tear of medial meniscus of left knee 12/21/20 S83.212A Difficult airway for intubation T88.4XXA Testicular pain, left N50.812 Anxiety F41.9 Arthralgia M25.50 Medical History Medical History Synovitis of left knee Medical History Comments:: see note in hx (difficult airway) Tobacco Smoking/Tobacco Use Status: Current-Occasional Tobacco Type: cigars Passive smoking exposure: Yes Second hand exposure: Yes Alcohol Alcohol Intake: current Alcohol intake frequency: a few times a week Alcohol type: beer and hard liquor Substance Use Substance use: Daily Substance use type: marijuana Details: 04/30/24 - pt smoked marijuana, drank 3 liquor drinks Vital Signs and Lab Results Vital Signs Most Recent Vital Signs in EMR: Most Recent Vital Signs Temp Pulse Resp BP Pulse Ox 36.6 C 61 16 147/63 H 99 05/01/23 09:26 05/01/23 09:26 05/01/23 09:26 05/01/23 09:26 05/01/23 09:26 Lab Results Blood Type / Crossmatch: No Data to Display Complete Blood Count: No Data to Display Complete Metabolic Panel: No Data to Display Liver Function Panel: No Data to Display Coagulation Panel: No Data to Display Cardiac Panel: No Data to Display Arterial Blood Gas: No Data to Display Venous Blood Gas: No Data to Display Pancreas Panel: No Data to Display Thyroid Panel: No Data to Display Infectious Disease: No Data to Display Blood Cultures: No Data to Display Toxicology Panel: No Data to Display Anesthesia Assessment and Plan Anesthesia History Personal History: No History of Anesthesia Complications and Other Family History: No Family History of Anesthesia Complications Exercise Tolerance Exercise Tolerance: Metabolic Equivalents>4 Pertinent Negatives Pertinent Negatives: No Symptoms of GERD Cardiac & Pulmonary Exam Cardiac Exam: Normal S1/S2 Heart Sounds Pulmonary Exam: Clear Bilateral Breath Sounds Implantable Cardiac Device Does patient have a Pacemaker or an ICD?: No Airway Exam Known Difficult Airway: No Mallampati Class: 2 Mouth Opening: Normal (> 3cm) Thyromental Distance: Greater than 3 cm Neck Range of Motion: Full ROM Neck Circumference: Normal Teeth Condition: Normal Dentition Airway Comments: Tooth 21 previously repaired ASA Classification ASA Score: ASA 2 Emergency Case?: No NPO Status NPO Status: NPO Clears >2 hours, Solids >8 hours Anesthesia Plan Resuscitation Status: Full Code Anesthesia Technique: General Anesthesia Airway Planned: Endotracheal Tube Monitors Used: Standard Monitors
[2023-05-01] MEDS: ceFAZolin 2 GM/50 ML BAG IVPB (10:56)
[2023-05-01] MEDS: Bupivacaine 0.25% Pres-Free 30 ML VIAL (11:34)
--- NOTE | 2023-05-01 12:14 | ROE_ITS ---
Date of service: 05/01/23 Time of Service: 11:00 Operative Note Operative Note DATE OF PROCEDURE: 05/01/23 PRE-OP DIAGNOSIS: Right knee 1. Medial meniscus tear 2. Chondromalacia POST-OP DIAGNOSIS: same Right knee 1. Medial meniscus tear 2. Chondromalacia 3. Lateral meniscus tear PROCEDURE: Right knee 1. Partial medial & lateral meniscectomy, CPT #84882 SURGEON: Nicolas Henderson [employer] PRINTER: None None ANESTHESIA TYPE: Local By Surgeon and General LMA/ETT Refer to Anesthesia Record ESTIMATED BLOOD LOSS: 5 PATHOLOGY: none sent TOURNIQUET TIME: 0 Patient was transported to: PACU Patient's condition: stable Indications: Please see complete medical record for details. Findings: Exam under anesthesia: Full range of motion, no instability Arthroscopic findings: Mild suprapatellar adhesions, moderate abundant patellofemoral synovitis, moderate medial compartment narrowing and generalized softening thinning chondromalacia, moderately sized for about the medial meniscus body through the posterior horn stopping near the root white and white- red zone degenerative?type complex tearing and fraying. Intact ACL, intact lateral compartment cartilage. Lateral meniscus body radial tear from about the white to the white: Red zone. Procedure Description: In the operating room, general anesthesia was induced. The patient was positioned supine on the operating room table. All bony prominences were well- padded. Preoperative antibiotics were administered. The Right knee was prepped and draped in the usual sterile fashion. The correct patient, procedure, and side of the procedure were all verified prior to incision. Exam under anesthesia was performed. 10 cc of 0.25% bupivacaine containing epinephrine was infiltrated about the planned anteromedial and anterolateral knee arthroscopy portals. An additional 10 cc of local was infiltrated about the medial meniscus surgical site. The portals were established and a complete diagnostic arthroscopy was performed with relevant findings detailed above. The mechanical shaver was used to lightly debride patellofemoral synovitis, resect suprapatellar adhesions, and open up the intercondylar area from soft tissue fat pad for meniscus surgery. The medial meniscus was probed and there were frayed degenerative?type layers mostly white and some white-red zone through the posterior horn of the tear. It was not amenable to repair especially considering the moderate compartment narrowing. Starting with the medial meniscus, using a combination of hand instruments including meniscal biters and a power shaver and working through the anterom edial and anterolateral portals the medial meniscus posterior horn through the body was debrided of all torn tissue to a stable margin. Care was taken to preserve as much meniscus tissue was possible. The meniscal remnant was contoured then probed and found to have a stable margin, stable root, and no other tears. In the [id number] position, the radial extent of the tear was used to localize resection of what seem to be redundant white zone, possibly discoid type lateral meniscus tissue contouring into the posterior and anterior horns. The mechanical shaver was used ultimately with biters to establish the best meniscal margin. Remnant was stable no additional tears. Under direct arthroscopic visualization an 18-gauge needle was passed into the knee from superolateral into the suprapatellar pouch. The knee was copiously irrigated with arthroscopic fluid until there was a clear effluent before being drained of all fluid. The anteromedial and anterolateral portals were closed in 3-0 Monocryl in a buried interrupted fashion. 10 cc of 0.25% bupivacaine with epinephrine containing 4 mg of morphine was infiltrated into the knee through the previously placed needle. Mastisol, Steri-Strips, and 4 x 4 gauze were applied over the incisions followed by sterile soft roll. The knee was then wrapped gently with an SHAINA comressive bandage. The patient awoke from anesthesia without complication and was transferred to the recovery room in a stable condition.
[2023-05-01] MEDS: fentaNYL 100 MCG/2 ML VIAL IVP (12:58)
[2023-05-01] MEDS: EPINEPHrine 10 MG/10 ML ML (13:00)
--- NOTE | 2023-05-01 14:11 | W.ANESPOSTOP ---
Postoperative Evaluation Date, Time and Location Date Performed: 05/01/23 Time Performed: 14:11 Patient Location: Day Surgery Unit Vital Signs Most Recent Imported Vital Signs: Most Recent Vital Signs Temp Pulse Resp BP Pulse Ox 36.3 C L 59 L 16 122/64 99 05/01/23 13:45 05/01/23 13:45 05/01/23 13:45 05/01/23 13:45 05/01/23 13:45 Pain Score Most Recent Pain Score: Most Recent Pain Score Pain Level 2 05/01/23 13:45 Assessment Mental Status: Awake (Alert & Oriented to Patient Baseline) Airway and Respiratory Function: Patent airway with normal (patient baseline) respiratory exam Cardiovascular Function: Hemodynamically Stable Hydration Status: Adequately Hydrated Nausea & Vomiting: No Nausea or Vomiting Pain: Pain is tolerable per patient Peripheral Nerve Block: Patient did not receive a nerve block
== END 2023-05-01 14:33 | disposition home or self-care (01) ==
LOC: SUR 09:07
PROVIDERS: PCP Nurse Practitioner Family; Visit Provider Student in an Organized Health Care Education/Training Program
PROC: (CPT 29880; principal; 2023-05-01 10:45)
DX: S83.241A Other tear of medial meniscus, current injury, right knee, initial encounter (principal); S83.281A Other tear of lateral meniscus, current injury, right knee, initial encounter; M94.261 Chondromalacia, right knee; X58.XXXA Exposure to other specified factors, initial encounter
CPT/HCPCS: 29880; J0665; J0690; J1100; J1885; J2001; J2250; J2405; J2704; J3010

== ENCOUNTER 2024-03-23 23:15 | Observation (INO) | payer OTHER, SELFPAY ==
[2024-03-23] VITALS (12 sets, daily range): BP systolic 132–148; BP diastolic 59–102; PULSE 45–59; RESP 10–19; TEMP 36.6; O2SAT 94–100
--- NOTE | 2024-03-23 23:00 | RT.EKG_ITS ---
APPROVED REPORT Exam: Resting ECG Reason for Exam: syncope Patient Location: E HR:50 bpm ECG Measurements Heart Rate 50 AXIS MD 205 P 50 QRSd 118 QRS 89 QT 440 T 56 QTc 402 Conclusion Sinus bradycardia...rate< 60 Nonspecific intraventricular conduction delay...QRSd >115mS, not LBBB/RBBB Borderline 1st degree heart block slight ST elevations ant/lat/inf suggestive of possible pericarditis, no MD depression No ST segement or T wave abnormalities to suggest occlusive FL.
--- NOTE | 2024-03-23 23:30 | DI.RAD_ITS ---
Exam(s) XR PORTABLE CHEST AP EXAM: XR PORTABLE CHEST AP CLINICAL HISTORY: Chest pain TECHNIQUE: 2D digital imaging was performed of the chest. One image was obtained. An AP view was ob tained. COMPARISON: CR CHEST 2 VIEWS PA,LAT from 07/31/2011 FINDINGS: MEDIASTINUM: Normal. HEART: Normal. PULMONARY VASCULATURE: Normal. LUNGS: Clear. PLEURAL SPACE: No pleural effusion or pneumothorax. BONE:Within normal limits for the patient's age. OTHER FINDINGS:Normal. IMPRESSION: No acute pulmonary findings. DATA REPOSITORY: RADIATION DOSE DELIVERED:
[2024-03-23] MEDS: Aspirin 81 MG CHEW 324 MG CH (23:41)
[2024-03-23 23:42] LABS: Abs Immature Grans 0.02 10^3/uL (0.0-0.06); Absolute Basophil Count 0.05 10^3/uL (0.0-0.2); Absolute Eosinophil Count 0.15 10^3/uL (0.0-0.7); Absolute Lymphocyte Count 2.55 10^3/uL (1.2-3.4); Absolute Monocyte Count 0.52 10^3/uL (0.1-0.8); Absolute Neutrophil Count 3.53 10^3/uL (1.2-6.7); Basophils % 0.7 %; Eosinophils % 2.2 %; HCT 41.3 % (40.0-50.0); HGB 13.7 g/dL (13.5-17.5); Immature Grans % 0.3 %; Lymphocytes % 37.4 %; MCH 28.2 pg (27.0-33.0); MCHC 33.2 % (32.0-36.0); MCV 85 fL (80-95); MPV 12.1 fL (8.0-11.0); Monocytes % 7.6 %; Neutrophils % 51.8 %; Platelet Count 165 10^3/uL (130-400); RBC 4.86 10^6/uL (4.36-5.78); RDW 13.8 % (11.8-14.1); RDW-SD 43.3 fL; WBC 6.82 10^3/uL (4.4-10.8)
[2024-03-23] MEDS: nitroGLYcerin 0.4 MG TAB SL (23:43)
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
[2024-03-23 23:51] LABS: ESR < 1 mm/hr (0-15)
[2024-03-23 23:58] LABS: INR 1.1 (0.9-1.1); PTT Activated 24.3 sec (23.6-32.8); Prothrombin Time 10.6 sec (9.1-11.1)
[2024-03-24] VITALS (50 sets, daily range): BP systolic 128–159; BP diastolic 57–86; PULSE 40–57; RESP 11–22; TEMP 36.1–36.9; O2SAT 95–100
[2024-03-24] LABS: C-Reactive Protein < 0.50 mg/dL (<or=0.5)
--- NOTE | 2024-03-24 | DI.US_ITS ---
APPROVED REPORT EXAM: Comprehensive 2D, Doppler, and color-flow Echocardiogram Patient Location: In-Patient Room/Bed: 231 Test Lead Application Testing: Chirag Ferrer RDCS (AE) Indications: Chest pain, syncope Conclusion Normal left ventricular wall thickness and chamber size. Ejection fraction is 65%. Wall motion is n ormal Normal right ventricular size and function Both atria are normal in size There is no structural or hemodynamically significant valvular disease There is an incidental finding of an atrial septal aneurysm Wall motion Left Ventricle The left ventricle is normal size. Left ventricular systolic function is normal. The left ventricular ejection fraction is within the normal range. There is normal left ventricular wall thickness. There is normal LV segmental wall motion. There is no ventricular septal defect visualized. EF is 65% Right Ventricle The right ventricle is normal size. The right ventricular systolic function is normal. Atria The left atrium size is normal. The right atrium size is normal. Atrial septal aneurysm is present. Aortic Valve The aortic valve is normal in structure. Aortic valve is trileaflet. There is no aortic valvular sten osis. No aortic regurgitation is present. Mitral Valve The mitral valve is normal in structure. No evidence of mitral valve stenosis. There is no mitral lillian ve regurgitation noted. Tricuspid Valve The tricuspid valve is normal in structure. There is no tricuspid valve stenosis. Trace tricuspid reg urgitation. Unable to assess PA pressure. Pulmonic Valve The pulmonary valve is normal in structure. There is no pulmonic valvular stenosis. Mild pulmonic reg urgitation. Great Vessels The aortic root is normal in size. Ascending aorta is not well visualized. Aortic arch is normal in c aliber. The IVC collapses <50% with inspiration. Pericardium There is no pericardial effusion. 2D Dimensions IVSD d PLAX 0.78 cm M: 0.6-1.2 Ao Root d 3.09 cm M: 3.1 - 3.7 LVPW d PLAX 0.77 cm M: 0.6 - 1.2 LVID d PLAX 4.75 cm M: 4.2 - 5.8 LVDs 3.12 cm M: 2.5 - 4.0 LV EF Teichholz 63.3 % FS 34.34 % LV EDV (Teich) 105.1 mL LV ESV (Teich) 38.5 mL Stroke Vol Index (Teich) 29.71 M-Mode TAPSE 2.92 cm (M/F) >1.7 Auto EF LV EDV A4C 181.1 mL LV EDV A2C 184.3 mL LV EDV BP 182.5 mL LV ESV A4C 67.4 mL LV ESV A2C 60.1 mL LV ESV BP 62.9 mL LVEF(%) A4C 62.8 % LVEF(%) A2C 67.4 % LVEF(%) BP 65.5 % LV SV A4C 113.7 ml LV SV A2C 124.2 ml LV SV BP 119.5 ml LV CO A4C 5.9 L/min LV CO A2C 6.3 L/min LV CO BP 6.1 L/min HR A4C 51.65 BPM HR A2C 50.49 BPM LV EDV Index (BP) LA Volume LA Length A4C 5.1 cm LA Length A2C 5.6 cm LA Area A4C s 18.89 cm2 LA Area A2C s 22.25 cm2 LA Vol A4C A-L 59.80 mL LA Vol A2C A-L 74.90 mL LA Vol Biplane A-L 70.4 mL LA Vol/BSA A4C A-L LA Vol/BSA A2C A-L LA Vol/BSA BP A-L 31.4 mL/m2 LA Vol A4C MOD 54.5 mL LA Vol A2C MOD 69.7 mL LA Vol BP MOD 64.6 mL RA Volume RA Area A4C 17.7 cm2 RA ESV A4C (A-L) 49.6mL RA Vol/BSA A4C A-L RA Length A4C 5.4 cm RA ESV A4C (MOD) 45.0mL LV Diastology MV E' medial 0.178 (>0.07 m/s) MV E Vmax 1.16 (0.4-1.3 m/s) MV E/E' MED 6.53 (<14) MV A Vmax 0.45 (0.4-1.3 m/s) MV E' lateral 0.204 (>0.1 m/s) E/A Ratio 2.6 MV E/E' LAT 5.70 (<14) MV E' Average 0.191 m/s MV E/E'(average) 6.09 Aortic Valve AoV Vmax 1.15 m/s LVOT Vmax 0.99 m/s AoV Peak Grad 5.3 mmHg LVOT Peak Grad 3.9 mmHg AoV Area (Vmax) 3.39 cm2 LVOT VTI 0.249 m AoV VTI 0.298 m LVOT Mean Grad 2.2 mmHg AoV Mean Corwin. 0.83 m/s LVOT SV 98.70 mL AoV Mean Grad 3.1 mmHg LVOT Diam s 2.20 cm AoV Area (VTI) 3.31 cm2 AV Regurg Peak Gr. 5.33 mmHg Velocity Ratio 0.86 Mitral Valve MV DT 231 (160-240 msec) Pulmonary Valve PV Vmax 1.00 (0.5-1.5 m/s) RVOT Vmax 0.70 m/s PV Peak Grad 4.0 mmHg RVOT Peak Gr. 1.9 mmHg PV Mean Corwin 0.76 m/s RVOT VTI 0.167 m PV Mean Grad 2.5 mmHg RVOT Mean Gr. 1.1 mmHg
[2024-03-24 00:10] LABS: ALT 26 U/L (16-63); AST 24 U/L (15-37); Albumin 3.7 g/dL (3.4-5.0); Alkaline Phosphatase 51 U/L (46-116); Anion Gap 7.2 mmol/L (3-11); BUN 25 mg/dL (7-18); Bilirubin, Total 1.36 mg/dL (0.2-1.0); CO2 28.8 mmol/L (21.0-32.0); CREATININE 1.5 mg/dL (0.70-1.30); Chloride 108 mmol/L (98-107); Estimated GFR 63.83 (mL/min/1.73m2); Glucose 96 mg/dL (74-106); Lipase 25 U/L (<78); NT-proBNP 21 pg/mL (<300); Potassium 3.7 mmol/L (3.5-5.1); Sodium 144 mmol/L (136-145); Total Protein 6.5 g/dL (6.4-8.2)
[2024-03-24 00:11] LABS: D-Dimer 98 ng/mlFEU (<500)
[2024-03-24 00:15] LABS: Calcium 8.5 mg/dL (8.5-10.1)
[2024-03-24 00:16] LABS: Troponin I < 4 ng/L (<or=76)
[2024-03-24] MEDS: Lidocaine 2% Pres-Free W/EPI 1/200,000 20 ML VIAL (00:26)
[2024-03-24 00:31] LABS: COVID-19 PCR Negative (Negative); Influenza A PCR Negative (Negative); Influenza B PCR Negative (Negative); RSV PCR Negative (Negative)
[2024-03-24 00:32] LABS: Source Nasopharynx
[2024-03-24 00:43] LABS: Troponin I < 4 ng/L (<or=76)
--- NOTE | 2024-03-24 01:30 | DI.VRAD_ITS ---
PROCEDURE INFORMATION: Exam: XR Chest Exam date and time: 03/23/2024 11:45 PM Age: 28 years old Clinical indication: Other: Chest pain TECHNIQUE: Imaging protocol: Radiologic exam of the chest. Views: 1 view. COMPARISON: CT CHEST/ABD/PEL W 08/29/2018 9:33 PM FINDINGS: Lungs: Unremarkable. No consolidation. Pleural spaces: Unremarkable. No pleural effusion. No pneumothorax. Heart/Mediastinum: Unremarkable. No cardiomegaly. Bones/joints: Unremarkable. IMPRESSION: No acute findings. Dictated and Authenticated by: Sidney Casillas MD. Ordering:KAIT Storey MD
[2024-03-24 02:30] LABS: Troponin I < 4 ng/L (<or=76)
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
--- NOTE | 2024-03-24 06:18 | W.PC.ACHO ---
Registration Status: Primary Language: Preferred Language: ED Information & Data Chief Complaint Chest Pain 03/23/24 23:48 Triage Note Pt BIBA, 1 week of feeling 03/23/24 23:15 unwell that has slowly progressed into L sided chest pain, SOB, weakness and nausea with syncopal episode tonight. Small lac to R eyebrow. BSL HR in the 50s. Per EMS, orthostatic. Pt states 2/10, L sided stabbing pain when inhales. 18G L AC, 4mg zofran, 1 L fluid bolus started. BGL 116. No PMH Medical / Surgical History (Last Reviewed 03/24/24 @ 03:06 by Bonilla Bergeron MD) Synovitis of left knee Most Recent Vital Signs Temperature 36.4 C L 03/24/24 04:57 Pulse 50 L 03/24/24 04:57 Pulse Rhythm Regular 03/24/24 04:57 Pulse 51 L 03/24/24 04:01 Respiratory Rate 18 03/24/24 04:57 Respiratory Effort Normal, Non-Labored 03/24/24 04:57 Respiratory Depth Normal 03/24/24 04:57 Respiratory Pattern Normal 03/24/24 04:57 Blood Pressure 159/77 H 03/24/24 04:57 Blood Pressure Mean 88 03/24/24 04:01 Blood Pressure Position Supine 03/23/24 23:15 Pulse Oximetry 100 03/24/24 04:57 Oxygen Delivery Method Room Air 03/24/24 04:57 Oxygen Flow Rate 0 03/24/24 04:57 Pain Level 1 03/24/24 04:57 Allergies No Known Allergies Allergy (Verified 03/23/24 23:20) Precautions Isolation Standard precaution 03/23/24 23:19 Active Medications Generic Name Dose Route Start Last Admin Trade Name Freq PRN Reason Stop Dose Admin Nitroglycerin 0.4 mg 03/23/24 23:31 03/23/24 23:43 Nitroglycerin 0.4 Mg Tab SL 0.4 mg Q5 MIN PRN X3 PRN Administration IV IV Catheter Type [Right Saline Lock Antecubital] IV Catheter Type [Left Saline Lock Antecubital] IV Catheter Gauge [Right 18 Antecubital] IV Catheter Gauge [Left 18 Antecubital] Diet Orders Category Date Time Status Regular/Normal [DIET] Nutrition 03/24/24 Breakfast Active Diagnostics 03/24/24 03/24/24 03/23/24 Range/Units 02:08 00:20 23:50 WBC (4.4-10.8) 10^3/uL RBC (4.36-5.78) 10^6/uL Hgb (13.5-17.5) g/dL Hct (40.0-50.0) % MCV (80-95) fL MCH (27.0-33.0) pg MCHC (32.0-36.0) % RDW (11.8-14.1) % Plt Count (130-400) 10^3/uL MPV (8.0-11.0) fL Immature Gran % % Neutrophils % % Lymphocytes % % Monocytes % % Eosinophils % % Basophils % % Nucleated RBC % (0.0-0.3) % Absolute Neutrophils (1.2-6.7) 10^3/uL Absolute Lymphocytes (1.2-3.4) 10^3/uL Absolute Monocytes (0.1-0.8) 10^3/uL Absolute Eosinophils (0.0-0.7) 10^3/uL Absolute Basophils (0.0-0.2) 10^3/uL ESR (0-15) mm/hr PT (9.1-11.1) sec INR (0.9-1.1) APTT (23.6-32.8) sec D-Dimer (<500) ng/mlFEU Sodium (136-145) mmol/L Potassium (3.5-5.1) mmol/L Chloride (98-107) mmol/L Carbon Dioxide (21.0-32.0) mmol/L Anion Gap (3-11) mmol/L BUN (7-18) mg/dL Creatinine (0.70-1.30) mg/dL Est GFR (CKD-EPI 2020) (mL/min/1.73m2) Glucose (74-106) mg/dL Calcium (8.5-10.1) mg/dL Magnesium (1.8-2.4) mg/dL Total Bilirubin (0.2-1.0) mg/dL AST (15-37) U/L ALT (16-63) U/L Alkaline Phosphatase (46-116) U/L Troponin I < 4 < 4 (<or=76) ng/L C-Reactive Protein (<or=0.5) mg/dL NT-Pro-B Natriuret Pep (<300) pg/mL Total Protein (6.4-8.2) g/dL Albumin (3.4-5.0) g/dL Lipase (<78) U/L B. divergens/MO-1 PCR Babesia duncani (PCR) Babesia microti DNA PCR Lyme Disease Antibody COVID-19 Source Nasopharynx SARS-CoV-2 (PCR) Negative (Negative) E.chaffeensis DNA (PCR) E.ewingii/canis DNA PCR E.muris eauclairensis (PCR) Influenza Type A (PCR) Negative (Negative) Influenza Type B (PCR) Negative (Negative) RSV (PCR) Negative (Negative) A. phagocytophilum (PCR) Blood B. miyamotoi (PCR) 03/23/24 03/23/24 Range/Units 23:18 00:00 WBC 6.82 (4.4-10.8) 10^3/uL RBC 4.86 (4.36-5.78) 10^6/uL Hgb 13.7 (13.5-17.5) g/dL Hct 41.3 (40.0-50.0) % MCV 85 (80-95) fL MCH 28.2 (27.0-33.0) pg MCHC 33.2 (32.0-36.0) % RDW 13.8 (11.8-14.1) % Plt Count 165 (130-400) 10^3/uL MPV 12.1 H (8.0-11.0) fL Immature Gran % 0.3 % Neutrophils % 51.8 % Lymphocytes % 37.4 % Monocytes % 7.6 % Eosinophils % 2.2 % Basophils % 0.7 % Nucleated RBC % 0.0 (0.0-0.3) % Absolute Neutrophils 3.53 (1.2-6.7) 10^3/uL Absolute Lymphocytes 2.55 (1.2-3.4) 10^3/uL Absolute Monocytes 0.52 (0.1-0.8) 10^3/uL Absolute Eosinophils 0.15 (0.0-0.7) 10^3/uL Absolute Basophils 0.05 (0.0-0.2) 10^3/uL ESR < 1 (0-15) mm/hr PT 10.6 (9.1-11.1) sec INR 1.1 (0.9-1.1) APTT 24.3 (23.6-32.8) sec D-Dimer 98 (<500) ng/mlFEU Sodium 144 (136-145) mmol/L Potassium 3.7 (3.5-5.1) mmol/L Chloride 108 H (98-107) mmol/L Carbon Dioxide 28.8 (21.0-32.0) mmol/L Anion Gap 7.2 (3-11) mmol/L BUN 25 H (7-18) mg/dL Creatinine 1.5 H (0.70-1.30) mg/dL Est GFR (CKD-EPI 2020) 63.83 (mL/min/1.73m2) Glucose 96 (74-106) mg/dL Calcium 8.5 (8.5-10.1) mg/dL Magnesium 2.0 (1.8-2.4) mg/dL Total Bilirubin 1.36 H (0.2-1.0) mg/dL AST 24 (15-37) U/L ALT 26 (16-63) U/L Alkaline Phosphatase 51 (46-116) U/L Troponin I < 4 (<or=76) ng/L C-Reactive Protein < 0.50 (<or=0.5) mg/dL NT-Pro-B Natriuret Pep 21 (<300) pg/mL Total Protein 6.5 (6.4-8.2) g/dL Albumin 3.7 (3.4-5.0) g/dL Lipase 25 (<78) U/L B. divergens/MO-1 PCR Pending Babesia duncani (PCR) Pending Babesia microti DNA PCR Pending Lyme Disease Antibody Pending COVID-19 Source SARS-CoV-2 (PCR) (Negative) E.chaffeensis DNA (PCR) Pending E.ewingii/canis DNA PCR Pending E.muris eauclairensis (PCR) Pending Influenza Type A (PCR) (Negative) Influenza Type B (PCR) (Negative) RSV (PCR) (Negative) A. phagocytophilum (PCR) Pending Blood B. miyamotoi (PCR) Pending Intake and Output - 24 Hour Total 03/23/24 23:05 thru 03/24/24 04:57 Intake Total 30 Balance 30 Weight 96.615 kg Intake: IV 30 Falls Risk Assessment History of Falls Admit Due to Fall 03/24/24 04:57 Contributing Factors Unstable 03/24/24 04:57 Ambulatory Aids Independent 03/24/24 04:57 Tubes/Lines With any additional score 03/24/24 04:57 Gait Evaluation No gait disturbance 03/24/24 04:57 Cognition No cognitive impairment 03/24/24 04:57 Fall Total Score 48 03/24/24 04:57 Level of Risk Moderate Risk 03/24/24 04:57 Problems (Last Reviewed 03/24/24 @ 03:06 by Bonilla Bergeron MD) Syncope (Chronic) v v v v v v v v v Sending and/or Receiving Nurses: Please use comment section below to note any information pertinent to the patient hand-off not included above. Information / Comments: Over the last week feeling worse, s/s worsening Got Left chest pain and SOB, pleuretic pain, weakness, nausea, dizziness Went to lay on the ground and passed out, Head lac on R eyebrow Trops negative, Labs unremarkable EKG borderline for pericarditis pain has been sitting around 2/10 has 2x 18g: RAC, LAC Gotten sublingal nitro, baby aspirin His mom had a Heart attack at 30years old VS: HR- 40s, lowest 39, highest 51 RR- 14 BP- 144/63 SPO2- 99% ra Report received from: Junaid@ [id number]
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
[2024-03-25 09:32] LABS: Lyme Ab w Rflx to Lyme Confirm Negative (Negative)
[2024-03-26 22:44] LABS: Anaplasma phagocytophilum Negative (Negative); B. miyamotoi PCR Negative (Negative); Babesia divergens/MO-1 Negative (Negative); Babesia duncani Negative (Negative); Babesia microti Negative (Negative); Ehrlichia chaffeensis Negative (Negative); Ehrlichia ewingii/canis Negative (Negative); Ehrlichia muris eauclairensis Negative (Negative)
== END 2024-03-24 15:57 | disposition home or self-care (01) ==
LOC: ER 03-24 04:38 → MS 03-24 04:39
PROVIDERS: Admitting Provider General Practice; Emergency Provider Student in an Organized Health Care Education/Training Program; PCP Nurse Practitioner Family; Visit Provider General Practice
DX: R55 Syncope and collapse (principal); R07.81 Pleurodynia; R00.1 Bradycardia, unspecified; I25.3 Aneurysm of heart; M92.529 Juvenile osteochondrosis of tibia tubercle, unspecified leg; G25.81 Restless legs syndrome; M54.9 Dorsalgia, unspecified; F17.210 Nicotine dependence, cigarettes, uncomplicated; F12.90 Cannabis use, unspecified, uncomplicated; W07.XXXA Fall from chair, initial encounter
CPT/HCPCS: 00123; 12011; 36415; 80053; 83690; 85652; 87637; 87798; 93005; 93308; 99285; 71045; 83735; 83880; 84484; 85025; 85379; 85610; 85730; 86140; 86618; 93010; 93306; 99236; J2004

== ENCOUNTER 2024-03-25 14:19 | Outpatient (RCR) | payer OTHER, SELFPAY ==
--- NOTE | 2024-03-29 08:59 | W.HOLTRPT ---
Date of service: 03/29/24 Time of Service: 08:59 Holter Monitor Report Referring Provider:: Tariq Gutierrez Indications:: Syncope Holter Monitor Note: This is a 48-hour Holter monitor. Rhythm throughout was sinus with an average heart rate of 57. Minimum was 32, maximum 116 A total of 7 premature ventricular contractions were recorded There were 124 premature atrial contractions There was no atrial fibrillation, no high-grade AV block, no pauses greater than 3 seconds Symptoms were reported which correlated to sinus rhythm, rates 50-70
== END 2024-04-05 23:59 | disposition home or self-care (01) ==
LOC: CARDOPNVT 14:19
PROVIDERS: PCP Nurse Practitioner Family; Visit Provider Internal Medicine Cardiovascular Disease
DX: R55 Syncope and collapse (principal); I49.1 Atrial premature depolarization; Z51.89 Encounter for other specified aftercare
CPT/HCPCS: 93225; 93226

== ENCOUNTER 2024-04-04 03:08 | Outpatient (CLI) | payer OTHER, SELFPAY ==
[2024-04-04 12:37] LABS: Anion Gap 7.2 mmol/L (3-11); BUN 20 mg/dL (7-18); CO2 28.8 mmol/L (21.0-32.0); CREATININE 1.3 mg/dL (0.70-1.30); Calcium 8.9 mg/dL (8.5-10.1); Chloride 106 mmol/L (98-107); Estimated GFR 75.79 (mL/min/1.73m2); Glucose 95 mg/dL (74-106); Sodium 142 mmol/L (136-145)
== END 2024-04-04 03:09 | disposition home or self-care (01) ==
LOC: LOS 03:08
PROVIDERS: PCP Nurse Practitioner Family; Visit Provider Nurse Practitioner Family
DX: R10.12 Left upper quadrant pain (principal)
CPT/HCPCS: 36415; 80048

== ENCOUNTER 2024-11-02 03:08 | Outpatient (CLI) | payer OTHER, SELFPAY ==
--- NOTE | 2024-11-02 06:45 | DI.RAD_ITS ---
Exam(s) XR FOOT RT COMPLETE EXAM: XR FOOT RT COMPLETE CLINICAL HISTORY: rt traci pain, anila, M79.671. TECHNIQUE: 2D digital imaging was performed. Three views. COMPARISON: No exams were available for comparison FINDINGS: BONES: No acute fracture is present. No bony destructive lesion is seen. Tiny plantar calcaneal spur. JOINTS: No dislocation present. No significant degenerative changes. There is mild varus deviation of the 5th toe. SOFT TISSUE: Mild soft tissue swelling adjacent to the 5th MTP joint. IMPRESSION: Mild bunionette. No bony erosions or joint space narrowing. DATA REPOSITORY: RADIATION DOSE DELIVERED:
== END 2024-11-02 03:28 ==
LOC: DI 03:08
PROVIDERS: PCP Nurse Practitioner Family; Visit Provider Nurse Practitioner Family
DX: M79.671 Pain in right foot (principal)
CPT/HCPCS: 73630

== ENCOUNTER 2024-11-14 17:52 | Emergency (ER) | payer OTHER, SELFPAY ==
[2024-11-14 17:58] VITALS: BP 118/64; PULSE 68; RESP 14; TEMP 36.6; O2SAT 95
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
--- NOTE | 2024-11-14 18:35 | NUR.NOTE ---
Animal bite report emailed to [email or web address] for follow up. Kroina Joy message left on cell phone regarding the animal bite report. Nursing Note:
[2024-11-14] MEDS: Amoxicillin 875/Clav. 125 TAB PO (19:05)
[2024-11-14 19:06] VITALS: BP 126/67; PULSE 56; RESP 14; TEMP 36.5; O2SAT 99
[2024-11-14 19:07] VITALS: BP 126/76; PULSE 72; RESP 18; TEMP 36.8; O2SAT 98
[2024-11-14 19:10] VITALS: BP 126/64; PULSE 72; RESP 18; TEMP 36.8; O2SAT 100
== END 2024-11-14 19:10 | disposition home or self-care (01) ==
PROVIDERS: Emergency Provider Emergency Medicine; PCP Nurse Practitioner Family
DX: S81.851A Open bite, right lower leg, initial encounter (principal); W54.0XXA Bitten by dog, initial encounter
CPT/HCPCS: 99283 ×2